=== PATIENT | female | born 1975 | race Caucasian/White ===

== ENCOUNTER 2016-12-09 16:06 | Emergency (ER) | payer SELFPAY ==
[~2016-12-09] VITALS: Ht 165.1 cm; Wt 90.9 kg
[2016-12-09 17:54] LABS: BASO % 0.4 % (0.0-1.0); EOS # 0.1 K/mm3 (0.0-0.50); EOS % 2.3 % (0.0-3.0); LARGE UNSTAINED CELL # 0.1 K/mm3 (0.0-0.4); LARGE UNSTAINED CELL % 2.3 % (0.0-4.0); LYMPH # 1.1 K/mm3 (1.5-4.5); LYMPH % 27.2 % (24.0-44.0); MEAN CORPUSCULAR HGB CONC 33.6 g/dl (32.0-36.5); MEAN CORPUSCULAR VOLUME 98.1 fl (80.0-96.0); MONO # 0.3 K/mm3 (0.0-0.8); MONO % 6.7 % (0.0-5.0); NEUTROPHILS # 2.6 K/mm3 (1.8-7.7); NEUTROPHILS % 61.1 % (36.0-66.0); PLATELET COUNT, AUTOMATED 233 k/mm3 (150-450); RED CELL DISTRIBUTION WIDTH 12.6 % (11.5-14.5); WHITE BLOOD COUNT 4.2 K/mm3 (4.0-10.0)
[2016-12-09 18:18] LABS: CONTROL LINE HCG INT CTR LINE PRESENT
[2016-12-09 18:26] LABS: ALBUMIN 3.5 GM/DL (3.2-5.2); ALBUMIN/GLOBULIN RATIO 0.97 (1.00-1.93); ALKALINE PHOSPHATASE 46 U/L (45-117); ALT/SGPT 43 U/L (12-78); ANION GAP 7 MEQ/L (8-16); AST/SGOT 28 U/L (15-37); BILIRUBIN,DIRECT < 0.1 MG/DL (0.0-0.2); BILIRUBIN,TOTAL 0.4 MG/DL (0.2-1.0); BLOOD UREA NITROGEN 14 MG/DL (7-18); CARBON DIOXIDE LEVEL 27 MEQ/L (21-32); CHLORIDE LEVEL 108 MEQ/L (98-107); CREATININE FOR GFR 0.63 MG/DL (0.55-1.02); GLOMERULAR FILTRATION RATE > 60.0 (>60); GLUCOSE, FASTING 102 MG/DL (70-105); POTASSIUM SERUM 4.2 MEQ/L (3.5-5.1); SODIUM LEVEL 142 MEQ/L (136-145); TOTAL PROTEIN 7.1 GM/DL (6.4-8.2)
[2016-12-09] MEDS ORDERED: ONDANSETRON 4MG/2ML VIAL (J2405) IV ONE (18:30)
[2016-12-09] MEDS ORDERED: KETOROLAC 30 MG/ML VIAL (J1885) IV ONE (18:30)
--- NOTE | 2016-12-09 18:59 | REP ---
Clinical: Renal colic. Findings: Liver, spleen, pancreas, collapsed gallbladder, bilateral adrenal glands and kidneys are normal for noncontrast evaluation. No perinephric stranding, hydroureternephrosis, intrarenal or obstructing ureteral calculi are identified. The enteric system is without obstruction or acute inflammatory process. Pelvis demonstrates normal bladder and age-appropriate uterus/adnexa. No pelvic fluid or ascites. No free air. No obvious adenopathy. Abdominal aorta without aneurysm. Surrounding musculoskeletal structures are intact. Impression: Normal noncontrast CT of the abdomen and pelvis. Normal appearance to the urinary tract system. No free fluid, free air, adenopathy. Signed by Magen Andino MD 12/09/2016 06:50 P
[2016-12-09] MEDS ORDERED: PERCOCET 5MG/325MG TAB PO ONE (19:30)
[2016-12-09] MEDS ORDERED: cefTRIAXone SOD 250 MG VIAL (J0696) IV ONE (20:00)
[2016-12-09] MEDS ORDERED: AZITHROMYCIN 250 MG TAB PO ONE (20:00)
[2016-12-09] MEDS ORDERED: LIDOCAINE 1% MDV 20ML VIAL As Ordered ONE (20:03)
[2016-12-09] MEDS ORDERED: PERCOCET PO (20:21)
[2016-12-09] MEDS ORDERED: KEFL500C17 PO (20:21)
[2016-12-09] MEDS ORDERED: OXYCODONE/APAP 5MG/325MG(BULK FOR ED) 1 TABLET PO ONE (20:30)
[2016-12-09 20:42] VITALS: BP 115/64
== END 2016-12-09 20:43 | disposition home or self-care (01) ==
LOC: M ED 16:06
DX: N73.0 Acute parametritis and pelvic cellulitis (principal); Z72.0 Tobacco use
CPT/HCPCS: 74176; 80048; 80076; 81001; 84703; 85025; 87086; 87210; 87491; 87591; 96374; 96375; 99283; J0696; J1885; J2405

== ENCOUNTER → 2017-04-29 | Outpatient (REF) | payer MEDICAID ==
[2017-04-29 17:10] LABS: INFLUENZA A AMPLIFICATION NEGATIVE (NEGATIVE); INFLUENZA B AMPLIFICATION POSITIVE (NEGATIVE); RSV AMPLIFICATION NEGATIVE (NEGATIVE)
== END ==
LOC: M LAB REF 16:25
DX: J11.1 Influenza due to unidentified influenza virus with other respiratory manifestations (principal)

== ENCOUNTER 2017-05-12 16:21 | Emergency (ER) | payer MEDICAID ==
[2017-05-12] MEDS: KETOROLAC TROMETHAMINE 10 MG TAB PO (19:44)
== END 2017-05-13 02:57 | disposition home or self-care (01) ==
LOC: M ED 05-13 02:57
DX: S83.412A Sprain of medial collateral ligament of left knee, initial encounter (principal); W01.0XXA Fall on same level from slipping, tripping and stumbling without subsequent striking against object, initial encounter; Y92.018 Other place in single-family (private) house as the place of occurrence of the external cause; J45.909 Unspecified asthma, uncomplicated; Z88.0 Allergy status to penicillin; Z88.1 Allergy status to other antibiotic agents
CPT/HCPCS: 73564

== ENCOUNTER → 2017-07-11 | Outpatient (REF) | payer OTHER ==
[2017-07-15 14:13] LABS: HPV HYBRID CAPTURE II Positive (Negative)
== END ==
LOC: M SFHCWAGY 10:35
DX: Z12.4 Encounter for screening for malignant neoplasm of cervix (principal)
CPT/HCPCS: 88142

== ENCOUNTER → 2017-08-18 | Outpatient (REF) | payer OTHER | LOC: M SFHCWAGY 13:50 | DX: R87.613 High grade squamous intraepithelial lesion on cytologic smear of cervix (HGSIL) (principal); R87.810 Cervical high risk human papillomavirus (HPV) DNA test positive; R87.610 Atypical squamous cells of undetermined significance on cytologic smear of cervix (ASC-US) | CPT/HCPCS: 88304 ==

== ENCOUNTER → 2017-12-26 | Outpatient (REF) | payer OTHER ==
[2017-12-26 22:10] LABS: APPEARANCE, URINE HAZY (CLEAR); BACTERIA, URINE AUTO 1+ (NEGATIVE); BILIRUBIN, URINE AUTO NEGATIVE (NEGATIVE); BLOOD, URINE BLOOD 1+ (NEGATIVE); COLOR, URINE YELLOW (YELLOW); GLUCOSE, URINE (UA) AUTO NEGATIVE (NEGATIVE); KETONE, URINE AUTO NEGATIVE (NEGATIVE); LEUKOCYTE ESTERASE, URINE AUTO TRACE (NEGATIVE); MUCUS, URINE SMALL (NEGATIVE); NITRITE, URINE AUTO NEGATIVE (NEGATIVE); PROTEIN, URINE AUTO NEGATIVE (NEGATIVE); RBC, URINE AUTO 1 /HPF (0-3); SPECIFIC GRAVITY URINE AUTO 1.024 (1.002-1.035); SQUAMOUS EPITHELIAL CELL UR AU 18 /HPF (0-6); UROBILINOGEN, URINE AUTO 0.2 mg/dL (0.0-2.0); WBC, URINE AUTO 3 /HPF (0-3)
== END ==
LOC: M LAB REF 21:13
DX: N39.0 Urinary tract infection, site not specified (principal)

== ENCOUNTER → 2018-03-25 | Outpatient (CLI) | payer OTHER ==
[~2018-03-25] MED LIST: ADV250INH INH; ALBU83IN INH; AZIT-12 PO; DEXT30LI PO; FLON1SPR; IBUP-1114 PO; KEFL500C17 PO; KETO10TAB PO; MUCI600T37 PO; PANT40TA3 PO; PERC5TAB12 PO; PERCOCET PO; PRED10TA2 PO; PRED20TA PO; ZYRT10CA PO; [UNRECOGNIZED DRUG - CODE] XX
[2018-03-25 17:45] LABS: BASO % 0.4 % (0.0-1.0); EOS # 0.1 10^3/uL (0.0-0.50); EOS % 1.4 % (0.0-3.0); HEMATOCRIT 43.1 % (36.0-47.0); HEMOGLOBIN 14.5 g/dl (12.0-15.5); LYMPH % 18.4 % (24.0-44.0); MEAN CORPUSCULAR HEMOGLOBIN 33.4 pg (27.0-33.0); MEAN CORPUSCULAR HGB CONC 33.6 g/dl (32.0-36.5); MEAN CORPUSCULAR VOLUME 99.3 fl (80.0-96.0); MONO # 0.6 10^3/uL (0.0-0.8); MONO % 9.8 % (0.0-5.0); NEUTROPHILS # 3.9 10^3/uL (1.8-7.7); NEUTROPHILS % 69.8 % (36.0-66.0); PLATELET COUNT, AUTOMATED 234 10^3/uL (150-450); RED BLOOD COUNT 4.34 10^6/uL (4.00-5.40); WHITE BLOOD COUNT 5.6 10^3/uL (4.0-10.0)
[2018-03-25 18:47] LABS: ERYTHROCYTE SEDIMENTATION RATE 5 mm/hr (0-20)
[2018-03-31 00:32] LABS: IgA ULTRASENSITIVE 340.7 mg/dL (72-321); TISSUE TRANSGLUTAMINASE IgA <2 U/mL (0-3); TISSUE TRANSGLUTAMINASE IgG <2 U/mL (0-5)
== END ==
LOC: M LAB 16:39
PROVIDERS: ATTEND Obstetrics & Gynecology
DX: K52.9 Noninfective gastroenteritis and colitis, unspecified (principal)

== ENCOUNTER 2018-05-06 08:59 | Day surgery (SDC) | payer OTHER ==
[~2018-05-06] VITALS: Ht 167.6 cm; Wt 96.2 kg
[~2018-05-06 08:59] MED LIST changes: +CLAR10CA3 PO; +NS 1,000 ML IV ONE; +OMEP20CA3 PO; +VENTAER INH
[2018-05-06] MEDS ORDERED: PROPOFOL 200 MG/20 ML VIAL As Ordered ONE (10:26)
--- NOTE | 2018-05-06 10:27 | ROOR ---
Patient Name: Julia Taylor Procedure Date: 05/06/2018 10:09 AM Date of : 1975 Age: 42 Room: [facility] Gender: Female Note Status: Finalized Procedure: Colonoscopy Indications: Rectal pain Providers: DO Jaja Drummond MD: dulce [facility] Provider: Medicines: Propofol per Anesthesia Complications: No immediate complications. Procedure: Pre-Anesthesia Assessment: - Prior to the procedure, a History and Physical was performed, and patient medications and allergies were reviewed. The patient is competent. The risks and benefits of the procedure and the sedation options and risks were discussed with the patient. All questions were answered and informed consent was obtained. Patient identification and proposed procedure were verified by the physician, the nurse, the anesthesiologist and the health care sanitary technician in the endoscopy suite. Mental Status Examination: alert and oriented. Airway Examination: normal oropharyngeal airway and neck mobility. Respiratory Examination: clear to auscultation. CV Examination: normal. Prophylactic Antibiotics: The patient does not require prophylactic antibiotics. Prior Anticoagulants: The patient has taken no previous anticoagulant or antiplatelet agents. ASA Grade Assessment: II - A patient with mild systemic disease. After reviewing the risks and benefits, the patient was deemed in satisfactory condition to undergo the procedure. The anesthesia plan was to use monitored anesthesia care (MAC). Immediately prior to administration of medications, the patient was re-assessed for adequacy to receive sedatives. The heart rate, respiratory rate, oxygen saturations, blood pressure, adequacy of pulmonary ventilation, and response to care were monitored throughout the procedure. The physical status of the patient was re-assessed after the procedure. The Colonoscope was introduced through the anus and advanced to the cecum, identified by appendiceal orifice and ileocecal valve. The colonoscopy was performed without difficulty. The patient tolerated the procedure well. Findings: An anal fissure was found on perianal exam. The perianal exam findings include non-thrombosed internal hemorrhoids and internal hemorrhoids (Grade I). The exam was otherwise without abnormality on direct and retroflexion views. Impression: - Anal fissure found on perianal exam. - Non-thrombosed internal hemorrhoids and internal hemorrhoids (Grade I) found on perianal exam. - The examination was otherwise normal on direct and retroflexion views. - No specimens collected. Recommendation: - Patient has a contact number available for emergencies. The signs and symptoms of potential delayed complications were discussed with the patient. Return to normal activities tomorrow. Written discharge instructions were provided to the patient. - Repeat colonoscopy in 10 years for screening purposes. - Return to my office PRN. Thanh Tarango DO 05/06/2018 10:27:12 AM This report has been signed electronically. Number of Addenda: 0 Note Initiated On: 05/06/2018 10:09 AM Estimated Blood Loss: Estimated blood loss: none.
[2018-05-06 10:50] VITALS: BP 112/83
== END 2018-05-06 11:19 | disposition home or self-care (01) ==
LOC: M OPP 08:59
PROVIDERS: ATTEND Surgery
DX: K62.89 Other specified diseases of anus and rectum (principal); K60.2 Anal fissure, unspecified; K64.0 First degree hemorrhoids; F17.210 Nicotine dependence, cigarettes, uncomplicated; Z88.0 Allergy status to penicillin; Z88.1 Allergy status to other antibiotic agents; Z79.1 Long term (current) use of non-steroidal anti-inflammatories (NSAID); Z79.899 Other long term (current) drug therapy

== ENCOUNTER → 2018-06-23 | Outpatient (CLI) | payer OTHER ==
[~2018-06-23] MED LIST changes: -NS 1,000 ML IV ONE
--- NOTE | 2018-06-29 15:59 | REP ---
BILATERAL MAMMOGRAM WITH 3D TOMOSYNTHESIS, DIAGNOSTIC MAMMOGRAM RIGHT BREAST, AND RIGHT BREAST ULTRASOUND: Bilateral mammography performed in the MLO and CC projections with 3D tomosynthesis. Patient complains of palpable tender lump at 10 o'clock for 1 month. The area is marked on the skin with a triangular marker and additional spot compression views are performed of that area. There is a family history of breast cancer in mother at age 58. [facility] lifetime risk of breast cancer 19.9%. Comparison made with prior mammogram from [place], [place] 01/12/2013. Mild scattered fibroglandular tissue is essentially unchanged. There is an intramammary lymph node subcentimeter in size in the upper outer quadrant of the right breast in the region of the palpable abnormality. In addition there are normal appearing bilateral axillary lymph nodes, which for the most part demonstrate fatty josi and are not enlarged. No suspicious mass is seen bilaterally. No clustered microcalcifications are seen. Real-time sonographic evaluation of the upper outer quadrant right breast performed in the region of the palpable lump. At that location there are three lymph nodes identified, largest measures 2.2 x 1.0 x 2.3 cm, another 10.0 x 8.0 x 9.0 mm and another 10.0 x 6.0 x 8.0 mm. IMPRESSION: BIRADS 2: BI-RADS/ACR category 2 mammogram. Benign Findings. No suspicious mass or clustered microcalcifications mammographically. Both mammographically and sonographically there are nonenlarged lymph nodes in the region of the palpable lump upper outer quadrant right breast. Clinical correlation and followup recommended. Recommend followup mammogram in 1 year. This mammogram was interpreted with the aid of an FDA-approved computer-aided detection system. The patient states she/he had a clinical breast exam in 05/2018. The patient letter being requested is M2. Electronically Signed by Thanh Keys MD 06/29/2018 04:36 P
== END ==
LOC: M RAD 09:38
DX: R59.0 Localized enlarged lymph nodes (principal)
CPT/HCPCS: 76642; 77066; G0279

== ENCOUNTER → 2018-07-01 | Outpatient (REF) | payer OTHER | LOC: M SFHCPLAZ 10:14 | PROVIDERS: ATTEND Dermatology | DX: C44.02 Squamous cell carcinoma of skin of lip (principal); D22.39 Melanocytic nevi of other parts of face; D23.39 Other benign neoplasm of skin of other parts of face ==

== ENCOUNTER → 2018-07-06 | Outpatient (CLI) | payer OTHER ==
--- NOTE | 2018-07-07 11:05 | REP ---
Clinical: Dating and viability. Technique: Transabdominal and transvaginal first trimester obstetrical ultrasound with color Doppler evaluation. Findings: Heterogeneous anteverted uterus measures 9.0 x 5.0 x 5.0 cm. Gestational sac with yolk sac identified. No pole noted. Mean sac diameter of 7 mm corresponds to 5 weeks 2 days gestational age. Right maternal ovary is normal in appearance and measures 2.3 x 1.9 x 1.6 cm with 1.4 cm dominant follicle/corpus luteum. Left ovary not visualized. Impression: 1. Likely early intrauterine . Correlation with serial HCG levels and repeat ultrasound may be warranted. Differential diagnosis less likely including blighted ovum/spontaneous and pseudogestational sac related to ectopic . Electronically Signed by Magen Andino MD 07/07/2018 10:57 A
== END ==
LOC: M RAD 12:09
PROVIDERS: ATTEND Nurse Practitioner Family
DX: Z32.01 Encounter for pregnancy test, result positive (principal); Z3A.01 Less than 8 weeks gestation of pregnancy

== ENCOUNTER → 2018-10-29 | Outpatient (REF) | payer OTHER ==
[~2018-10-29] MED LIST changes: -OMEP20CA3 PO; +OMEP20CA4 PO
== END ==
LOC: M SFHCWAGY 12:07
PROVIDERS: ATTEND Nurse Practitioner Women's Health
DX: B00.9 Herpesviral infection, unspecified (principal)

== ENCOUNTER → 2018-10-29 | Outpatient (REF) | payer OTHER ==
[2018-10-31 14:07] LABS: HPV HYBRID CAPTURE II Positive (Negative)
== END ==
LOC: M SFHCWAGY 10:21
PROVIDERS: ATTEND Nurse Practitioner Women's Health
DX: B00.9 Herpesviral infection, unspecified (principal)

== ENCOUNTER → 2019-03-09 | Outpatient (CLI) | payer OTHER ==
[~2019-03-09] MED LIST changes: +OMEP-172 PO; -OMEP20CA4 PO
--- NOTE | 2019-03-09 11:23 | REP ---
Chest x-ray: Two views. History: Shortness of breath and cough . Comparison study: July 04, 2017 . Findings: The lungs are well inflated and free of infiltrate. The pleural angles are sharp. The heart size is normal. Pulmonary vasculature is not increased. No significant bony abnormality is seen. Impression: Negative chest x-ray. Electronically Signed by Endy Garcias MD 03/09/2019 11:14 A
== END ==
LOC: M RAD 10:47
PROVIDERS: ATTEND Physician Assistant Medical
DX: R06.02 Shortness of breath (principal); R05 Cough

== ENCOUNTER → 2019-04-02 | Outpatient (CLI) | payer OTHER ==
[2019-04-02 17:26] LABS: HEMATOCRIT 44.5 % (36.0-47.0); HEMOGLOBIN 14.7 g/dl (12.0-15.5); MEAN CORPUSCULAR HEMOGLOBIN 32.4 pg (27.0-33.0); PLATELET COUNT, AUTOMATED 216 10^3/uL (150-450); RED BLOOD COUNT 4.54 10^6/uL (4.00-5.40); WHITE BLOOD COUNT 4.6 10^3/uL (4.0-10.0)
[2019-04-02 17:35] LABS: FREE T4 0.73 NG/DL (0.76-1.46); THYROID STIMULATING HORMONE 2.4 uIU/ML (0.358-3.740)
[2019-04-02 17:38] LABS: TOTAL 25(OH) VITAMIN D 14.9 NG/ML (30.0-100.0)
[2019-04-07 00:07] LABS: HSV-1 DNA Negative (Negative); HSV-2 DNA Negative (Negative)
== END ==
LOC: M PLALAB 13:16
PROVIDERS: ATTEND Student in an Organized Health Care Education/Training Program
DX: R53.83 Other fatigue (principal); B00.9 Herpesviral infection, unspecified

== ENCOUNTER → 2019-07-16 | Outpatient (REF) | payer OTHER ==
[~2019-07-16] MED LIST changes: -OMEP-172 PO; +OMEP1CAP73 PO
== END ==
LOC: M SFHCPLAZ 12:49
PROVIDERS: ATTEND Obstetrics & Gynecology
DX: E55.9 Vitamin D deficiency, unspecified (principal); F34.1 Dysthymic disorder

== ENCOUNTER → 2019-07-21 | Outpatient (CLI) | payer OTHER ==
[2019-07-21 15:44] LABS: FREE T4 0.92 NG/DL (0.76-1.46); THYROID STIMULATING HORMONE 3.01 uIU/ML (0.358-3.740)
== END ==
LOC: M PLALAB 13:40
PROVIDERS: ATTEND Obstetrics & Gynecology
DX: E55.9 Vitamin D deficiency, unspecified (principal); F34.1 Dysthymic disorder

== ENCOUNTER → 2019-12-11 | Outpatient (CLI) | payer OTHER ==
[~2019-12-11] MED LIST changes: +PANT40TA29 PO; -PANT40TA3 PO
--- NOTE | 2019-12-11 12:58 | REPVR ---
PROCEDURE INFORMATION: Exam: XR Chest, 2 Views Exam date and time: 12/11/2019 12:19 PM Age: 44 years old Clinical indication: Cough; Additional info: Cough/chest pain TECHNIQUE: Imaging protocol: XR of the chest Views: 2 views. COMPARISON: CR Chest, 2 view PA, Lat 07/04/2017 10:19 AM FINDINGS: Lungs: Hyperinflation and mild interstitial prominence, without infiltrate. Pleural space: No pleural effusion. Heart/Mediastinum: No cardiomegaly. Bones/joints: Unremarkable. When correlating with the previous study, no significant interval changes are present. IMPRESSION: No acute airspace or pleural disease. Electronically signed by: Graham Pulliam On 12/11/2019 12:58:07 PM
== END ==
LOC: M RAD 12:02
PROVIDERS: ATTEND Physician Assistant
DX: R05 Cough (principal); R07.9 Chest pain, unspecified

== ENCOUNTER → 2019-12-17 | Outpatient (REF) | payer OTHER | LOC: M SFHCWAGY 13:49 | PROVIDERS: ATTEND Nurse Practitioner Women's Health | DX: Z12.4 Encounter for screening for malignant neoplasm of cervix (principal); R87.612 Low grade squamous intraepithelial lesion on cytologic smear of cervix (LGSIL) ==

== ENCOUNTER 2020-01-03 16:49 | Emergency (ER) | payer OTHER ==
[~2020-01-03] VITALS: Ht 167.6 cm; Wt 102.4 kg
[2020-01-03] MEDS ORDERED: KEFL500C17 PO (19:51)
[2020-01-03 20:04] VITALS: BP 118/63
== END 2020-01-03 20:05 | disposition home or self-care (01) ==
LOC: M ED 16:49
DX: L03.012 Cellulitis of left finger (principal); Z79.51 Long term (current) use of inhaled steroids; Z79.899 Other long term (current) drug therapy; Z88.0 Allergy status to penicillin; Z88.1 Allergy status to other antibiotic agents

== ENCOUNTER → 2020-06-28 | Outpatient (REF) | payer OTHER ==
[2020-06-28 14:52] LABS: BLOOD UREA NITROGEN 13 MG/DL (7-18); CARBON DIOXIDE LEVEL 29 MEQ/L (21-32); CHLORIDE LEVEL 106 MEQ/L (98-107); CHOLESTEROL LEVEL 187 MG/DL (<200); CHOLESTEROL RISK RATIO 4.065 (<5); CREATININE FOR GFR 0.75 MG/DL (0.55-1.30); GLOMERULAR FILTRATION RATE > 60.0 (>58); GLUCOSE, FASTING 90 MG/DL (70-100); HDL CHOLESTEROL 46 MG/DL (>40); LDL CHOLESTEROL 120 MG/DL (<100); NON-HDL-C 141 MG/DL; SODIUM LEVEL 139 MEQ/L (136-145); TRIGLYCERIDES LEVEL 107 MG/DL (<150)
[2020-06-28 16:26] LABS: TOTAL 25(OH) VITAMIN D 22.7 NG/ML (30.0-100.0)
== END ==
LOC: M SFHCPLAZ 10:20
PROVIDERS: ATTEND Family Medicine
DX: Z13.1 Encounter for screening for diabetes mellitus (principal); Z13.220 Encounter for screening for lipoid disorders; E55.9 Vitamin D deficiency, unspecified

== ENCOUNTER → 2020-11-02 | Outpatient (CLI) | payer OTHER ==
--- NOTE | 2020-11-02 15:51 | REPMRS ---
Patient History The patient states she had a clinical breast exam in 2019. Family history of breast cancer at age 58 in mother. Tomosynthesis is performed. Volpara breast density is a. [facility] lifetime risk of breast cancer 19.6%. Left breast tenderness, the top half of the breast since June Patient signed the MRS sheet 1st covid vaccine 06/15/20-left arm-Moderna 2nd covid vaccine 07/13/20-left arm Priors on PACS Patient Identification Verified Patient denied Diagnostic Bilateral Mammo: November 02, 2020 - Exam #: [id number] Bilateral CC and MLO view(s) were taken. Technologist: Miesha Arriaga, Technologist Prior study comparison: June 23, 2018, digital mammo diagnostic bilateral, performed at [facility]. FINDINGS: There are scattered fibroglandular densities. There has been no change in the appearance of the mammogram from the prior studies. There is a mild amount of residual fibroglandular tissue which is fairly symmetric. There is no interval development of dominant mass, architectural distortion, or clustered microcalcification suggestive of malignancy. Assessment: BI-RADS/ACR category 1 mammogram. Negative Mammogram. Recommendation Routine screening mammogram in 1 year (for women over age 40). This mammogram was interpreted with the aid of an FDA-approved computer-aided dectection system. Electronically Signed By: Thanh Keys MD 11/02/20 [id number]
== END ==
LOC: M WHC 14:32
PROVIDERS: ATTEND Student in an Organized Health Care Education/Training Program
DX: N64.4 Mastodynia (principal); Z80.3 Family history of malignant neoplasm of breast
CPT/HCPCS: 77066; G0279

== ENCOUNTER 2020-12-08 14:16 | Emergency (ER) | payer MEDICAID, OTHER ==
[~2020-12-08] VITALS: Ht 167.6 cm; Wt 100.4 kg
[2020-12-08] MEDS ORDERED: VENL37.598 (14:34)
[2020-12-08] MEDS ORDERED: MI-A80CH (14:34)
[2020-12-08 18:35] LABS: BASO % 0.2 % (0.0-1.0); EOS # 0.1 10^3/uL (0.0-0.5); HEMATOCRIT 42.6 % (36.0-47.0); HEMOGLOBIN 14.4 g/dl (12.0-15.5); LYMPH # 1.3 10^3/uL (1.5-5.0); LYMPH % 25.5 % (24.0-44.0); MEAN CORPUSCULAR HEMOGLOBIN 33.2 pg (27.0-33.0); MEAN CORPUSCULAR HGB CONC 33.8 g/dl (32.0-36.5); MEAN CORPUSCULAR VOLUME 98.2 fl (80.0-96.0); MONO # 0.7 10^3/uL (0.0-0.8); MONO % 12.6 % (2.0-8.0); NEUTROPHILS # 3.2 10^3/uL (1.5-8.5); NEUTROPHILS % 60.3 % (36.0-66.0); PLATELET COUNT, AUTOMATED 226 10^3/uL (150-450); RED BLOOD COUNT 4.34 10^6/uL (4.00-5.40); WHITE BLOOD COUNT 5.3 10^3/uL (4.0-10.0)
[2020-12-08 18:52] LABS: HCG, SERUM QUALITATIVE NEGATIVE (NEGATIVE)
[2020-12-08 18:54] LABS: ALBUMIN 3.8 GM/DL (3.2-5.2); ALT/SGPT 48 U/L (12-78); BILIRUBIN,DIRECT 0.2 MG/DL (0.0-0.2); BILIRUBIN,TOTAL 0.6 MG/DL (0.2-1.0); BLOOD UREA NITROGEN 10 MG/DL (7-18); CALCIUM LEVEL 9.4 MG/DL (8.5-10.1); CARBON DIOXIDE LEVEL 27 MEQ/L (21-32); CHLORIDE LEVEL 106 MEQ/L (98-107); GLOMERULAR FILTRATION RATE > 60.0 (>58); GLUCOSE, FASTING 79 MG/DL (70-100); LIPASE 185 U/L (73-393); POTASSIUM SERUM 3.8 MEQ/L (3.5-5.1); SODIUM LEVEL 138 MEQ/L (136-145); TOTAL PROTEIN 7.5 GM/DL (6.4-8.2)
[2020-12-08 20:29] LABS: CK-MB VALUE MASS < 1.0 NG/ML (<3.6); CPK CREATINE PHOSPHOKINASE 45 U/L (26-192); MB/CK RELATIVE INDEX 2.22 (< OR =4); TROPONIN I < 0.02 NG/ML (< 0.10)
--- NOTE | 2020-12-08 21:13 | REPVR ---
PROCEDURE INFORMATION: Exam: US Abdomen, Limited; Right Upper Quadrant Exam date and time: 12/08/2020 8:39 PM Age: 45 years old Clinical indication: Abdominal pain; Acute; Additional info: Ruq pain, n/v/d TECHNIQUE: Imaging protocol: US abdomen. Real time ultrasound with image documentation. Limited exam focused on the right upper quadrant. COMPARISON: CT ABD PELVIS W/O CONTRAST 12/09/2016 6:32 PM FINDINGS: Liver: Mildly echogenic, consistent with fatty infiltration. Gallbladder: No gallstones. No gallbladder wall thickening or pericholecystic fluid. Negative sonographic Sotelo's sign, as per the performing intake clerk. Common bile duct: No stones. No ductal dilatation. Pancreas: Unremarkable as visualized. Right kidney: No mass. No definite stones. No hydronephrosis. IMPRESSION: Fatty liver. Electronically signed by: Kai Jeronimo On 12/08/2020 21:13:38 PM
[2020-12-08 21:28] VITALS: BP 128/94
--- NOTE | 2020-12-10 19:51 | ECGEPIP ---
[facility] - ED Test Date: 2020-12-08 Pat Name: DWAYNE CEJA Department: Room: - Gender: Female [employer] Install[employer]: [facility] : 1975 Requested By: BRIDGET Cristina PA-C Order Number: [id number] Reading MD: Jacinta Benjamin Measurements Intervals [place] Rate: 63 P: 18 AK: 200 QRS: -9 QRSD: 92 T: 22 QT: 418 QTc: 427 Interpretive Statements Normal sinus rhythm NSTTW abnormalities decreased rate 07/04/17 Electronically Signed on 12-10-2020 19:51:26 EDT by Jacinta Benjamin
== END 2020-12-08 21:43 | disposition home or self-care (01) ==
LOC: M ED 14:16
DX: R10.10 Upper abdominal pain, unspecified (principal); K76.0 Fatty (change of) liver, not elsewhere classified; J45.909 Unspecified asthma, uncomplicated; K21.9 Gastro-esophageal reflux disease without esophagitis; Z79.899 Other long term (current) drug therapy; Z88.0 Allergy status to penicillin; Z88.1 Allergy status to other antibiotic agents; F17.210 Nicotine dependence, cigarettes, uncomplicated

== ENCOUNTER → 2021-02-05 | Outpatient (REF) | payer OTHER ==
[~2021-02-05] MED LIST changes: +ALLE10TA62 PO; +MI-A80CH; +MUCI600T31 PO; +VENL37.598 PO
== END ==
LOC: M LAB REF 21:20
PROVIDERS: ATTEND Physician Assistant Medical
DX: R50.9 Fever, unspecified (principal); R06.02 Shortness of breath

== ENCOUNTER 2021-02-07 11:44 | Inpatient (IN) | payer OTHER ==
[~2021-02-07] VITALS: Ht 167.6 cm; Wt 105.2 kg
[~2021-02-07 11:44] MED LIST changes: -ALLE10TA62 PO; -MUCI600T31 PO
--- OUTSIDE RECORDS SUMMARY | 2021-02-07 11:51 | CCD ---
Author Author [facility] Organization [facility] Address Unknown Phone Unavailable Support Name Relationship Address [place] [address] [place] [address] GRICELDA MO(COUSIN) Next Of [facility] [address] [place] [address] [employer] [place] [address] GRICELDA MO Next Of [facility] [address] [place] [address] Mariah Amador DMD Next Of Kin [address] [place] [address] [facility] Next Of Kin [address] [place] [address] JANEY CEJA Next Of Kin [address] [address] UE Next Of Kin Unknown Unavailable Jie CEJA Next Of Kin [address] [place] [address] GRICELDA MO [address] [address] Unavailable Re-disclosure Warning The records that you are about to access may contain information from federally-assisted alcohol or drug abuse programs. If such information is present, then the following federally mandated warning applies: This information has been disclosed to you from records protected by federal confidentiality rules (42 CFR part 2). The federal rules prohibit you from making any further disclosure of this information unless further disclosure is expressly permitted by the written consent of the person to whom it pertains or as otherwise permitted by 42 CFR part 2. A general authorization for the release of medical or other information is NOT sufficient for this purpose. The Federal rules restrict any use of the information to criminally investigate or prosecute any alcohol or drug abuse patient.The records that you are about to access may contain highly sensitive health information, the redisclosure of which is protected by Article 27-F of the [facility] Public Health law. If you continue you may have access to information: Regarding HIV / AIDS; Provided by facilities licensed or operated by the [facility] Office of Mental Health; or Provided by the [facility] Office for People With Developmental Disabilities. If such information is present, then the following [facility] mandated warning applies: This information has been disclosed to you from confidential records which are protected by state law. State law prohibits you from making any further disclosure of this information without the specific written consent of the person to whom it pertains, or as otherwise permitted by law. Any unauthorized further disclosure in violation of state law may result in a fine or prison sentence or both. A general authorization for the release of medical or other information is NOT sufficient authorization for further disc losure. Family History Family Member Name Family Member Gender Family Member Status Date o f Status Description Data Source(s) Unknown Male Problem MEDENT ([facility]) Unknown Male Problem MEDENT ([facility] ) Encounters Encounter Providers Location Date Indications Data Source(s ) Unknown [address] [facility] [place] [address] 12/12/2020 12:00:00 AM EDT eCW1 ([facility]) Unknown [address] [facility] [place] [address] 12/11/2020 12:00:00 AM EDT eCW1 ([facility]) Unknown [address] [facility] [place] [address] 12/07/2020 12:00:00 AM EDT eCW1 ([facility]) Outpatient 11/18/2020 11:49:14 AM EDT DocuTap ([facility]) Unknown [address] [facility] [place] [address] 09/05/2020 12:00:00 AM EDT eCW1 ([facility]) Unknown [address] [facility] [place] [address] 07/12/2020 12:00:00 AM EDT eCW1 ([facility]) Unknown [address] [facility] [place] [address] 06/29/2020 12:00:00 AM EDT eCW1 ([facility]) Outpatient [address] [facility] [address] 06/28/2020 12:00:00 AM EDT eCW1 ([facility]) Unknown [address] [facility] [address] 06/07/2020 12:00:00 AM EST eCW1 ([facility]) Unknown [address] [facility] [address] 04/18/2020 12:00:00 AM EST eCW1 ([facility]) Unknown [address] [facility] [address] 04/12/2020 12:00:00 AM EST eCW1 ([facility]) Unknown [address] [facility] [address] 02/29/2020 12:00:00 AM EST eCW1 ([facility]) Outpatient [address] [facility] [address] 02/10/2020 12:00:00 AM EST eCW1 ([facility]) Outpatient [address] [facility] [address] 01/24/2020 12:00:00 AM EDT eCW1 ([facility]) Outpatient [address] [facility] [address] 01/20/2020 12:00:00 AM EDT eCW1 ([facility]) (WC PROC) [facility]Center Procedure [address] [place] [address] 01/17/2020 12:00:00 AM EDT eCW1 ([facility]) Unknown [address] [facility] [address] 01/03/2020 12:00:00 AM EDT eCW1 ([facility]) Unknown [address] [facility] [address] 12/31/2019 12:00:00 AM EDT eCW1 ([facility]) Outpatient [address] [facility] [address] 12/30/2019 12:00:00 AM EDT eCW1 ([facility]) Immunizations Vaccine Date Status Description Data Source(s) COVID-19 VACCINE Moderna 07/13/2020 12:00:00 AM EDT completed [place] Vaccine Series Complete: YESThis Data wa s Submitted to [facility] Via [employer]. COVID-19 VACCINE Moderna 06/15/2020 12:00:00 AM EDT completed [place] Vaccine Series Complete: NOThis Data was Submitted to [facility] Via [employer]. Medications Medication Brand Name Start Date Product Form Dose Route Admi nistrative Instructions Pharmacy Instructions Status Indications Reaction Description Data Source(s) Metronidazole 500 MG Oral Tablet METRONIDAZOLE 01/30/2021 12:0 0:00 AM EDT tablet 14 TAKE ONE TABLET BY MOUTH TWICE A DAY FOR 7 DAYS TAKE ONE TABLET BY MOUTH TWICE A DAY FOR 7 DAYS SOLD: 01/30/2021 [facility] 150 mg 01/30/2021 12:00:00 AM EDT tablet 2 TAKE ONE TABLET BY MOUTH TODAY REPEAT DOSE IN 7 DAYS TAKE ONE TABLET BY MOUTH TODAY REPEAT DOSE IN 7 DAYS S OLD: 01/30/2021 [facility] 150 mg 01/09/2021 12:00:00 AM EDT tablet 2 TAKE 1 TABLET BY MOUTH ONCE FOR 1 DAY TAKE 1 TABLET BY MOUTH ONCE FOR 1 DAY SOLD: 01/09/2021 [facility] 250 mg 01/09/2021 12:00:00 AM EDT tablet 6 TAKE TWO TABLETS BY MOUTH AT ONCE ON THE FIRST DAY THEN TAKE ONE DAILY THEREAFTER TAKE TWO TABLETS BY MOUTH AT ONCE ON THE FIRST DAY THEN TAKE ONE DAILY THEREAFTER SOLD: 01/09/2021 [facility] 80 mg 12/06/2020 12:00:00 AM EDT tablet,chewable 30 CHEW ONE TABLET BY MOUTH FOUR TIMES A DAY NEEDED CHEW ONE TABLET BY MOUTH FOUR TIMES A DAY NEEDED SOLD: 12/06/2020 [facility] 37.5 mg 11/10/2020 12:00:00 AM EDT capsule,extended releas e 24hr 30 TAKE ONE CAPSULE BY MOUTH EVERY DAY TAKE ONE CAPSULE BY MOUTH EVERY DAY SOLD: 12/18/2020 [facility] 37.5 mg 11/10/2020 12:00:00 AM EDT capsule,extended releas e 24hr 30 TAKE ONE CAPSULE BY MOUTH EVERY DAY TAKE ONE CAPSULE BY MOUTH EVERY DAY SOLD: 11/16/2020 [facility] 37.5 mg 11/10/2020 12:00:00 AM EDT capsule,extended releas e 24hr 30 TAKE ONE CAPSULE BY MOUTH EVERY DAY TAKE ONE CAPSULE BY MOUTH EVERY DAY SOLD: 01/14/2021 [facility] 300 mg 10/25/2020 12:00:00 AM EDT capsule 14 TAKE ONE CAPSULE BY MOUTH EVERY 12 HOURS FOR 7 DAYS TAKE ONE CAPSULE BY MOUTH EVERY 12 HOURS FOR 7 DAYS SO LD: 10/25/2020 [facility] 20 mg 09/11/2020 12:00:00 AM EDT tablet 7 TAKE ONE TABLET BY MOUTH EVERY DAY FOR 7 DAYS TAKE ONE TABLET BY MOUTH EVERY DAY FOR 7 DAYS SOLD: 09/11/2020 [facility] 90 mcg/actuation 09/11/2020 12:00:00 AM EDT HFA aerosol inha ler 8 INHALE TWO PUFFS BY MOUTH THREE TIMES A DAY FOR 10 DAYS INHALE TWO PUFFS BY MOUTH THREE TIMES A DAY FOR 10 DAYS SOLD: 09/11/2020 [facility] 2.5 mg /3 mL (0.083 %) 09/11/2020 12:00:00 AM EDT solu tion for nebulization 75 INHALE THE CONTENTS OF ONE VIAL VIA NEBU LIZER FOUR TIMES A DAY NEEDED INHALE THE CONTENTS OF ONE VIAL VIA NEBULIZER FOUR TIMES A DAY NEEDED SOLD: 09/11/2020 [facility] 250 mg 09/11/2020 12:00:00 AM EDT tablet 6 TAKE TWO TABLETS BY MOUTH AT ONCE ON THE FIRST DAY THEN TAKE ONE DAILY THEREAFTER TAKE TWO TABLETS BY MOUTH AT ONCE ON THE FIRST DAY THEN TAKE ONE DAILY THEREAFTER SOLD: 09/11/2020 [facility] 37.5 mg 07/15/2020 12:00:00 AM EDT capsule,extended releas e 24hr 30 TAKE ONE CAPSULE BY MOUTH EVERY DAY TAKE ONE CAPSULE BY MOUTH EVERY DAY SOLD: 09/18/2020 [facility] 37.5 mg 07/15/2020 12:00:00 AM EDT capsule,extended releas e 24hr 30 TAKE ONE CAPSULE BY MOUTH EVERY DAY TAKE ONE CAPSULE BY MOUTH EVERY DAY SOLD: 07/16/2020 [facility] 37.5 mg 07/15/2020 12:00:00 AM EDT capsule,extended releas e 24hr 30 TAKE ONE CAPSULE BY MOUTH EVERY DAY TAKE ONE CAPSULE BY MOUTH EVERY DAY SOLD: 08/14/2020 [facility] 37.5 mg 07/15/2020 12:00:00 AM EDT capsule,extended releas e 24hr 30 TAKE ONE CAPSULE BY MOUTH EVERY DAY TAKE ONE CAPSULE BY MOUTH EVERY DAY SOLD: 10/15/2020 [facility] 37.5 mg 06/09/2020 12:00:00 AM EST capsule,extended releas e 24hr 30 TAKE ONE CAPSULE BY MOUTH EVERY DAY TAKE ONE CAPSULE BY MOUTH EVERY DAY SOLD: 06/10/2020 [facility] 100 mg 01/31/2020 12:00:00 AM EST capsule 14 TAKE ONE CAPSULE BY MOUTH TWICE A DAY FOR 7 DAYS TAKE ONE CAPSULE BY MOUTH TWICE A DAY FOR 7 DAYS SOLD: 01/31/2020 [facility] 90 mcg/actuation 01/29/2020 12:00:00 AM EDT HFA aerosol inha ler 8 INHALE 1 PUFF BY MOUTH EVERY 4 HOURS NEEDED INHALE 1 PUFF BY MOUTH EVERY 4 HOURS NEEDED SOLD: 01/31/2020 [facility] Cephalexin 500 MG Oral Capsule CEPHALEXIN 12/31/2019 12:00:00 AM EDT capsule 21 TAKE ONE CAPSULE BY MOUTH THREE TIMES A DAY FOR 7 DAYS TAKE ONE CAPSULE BY MOUTH THREE TIMES A DAY FOR 7 DAYS SOLD: 12/31/2019 [facility] 100 mg 12/11/2019 12:00:00 AM EDT capsule 14 TAKE ONE CAPSULE BY MOUTH TWICE A DAY FOR 7 DAYS TAKE ONE CAPSULE BY MOUTH TWICE A DAY FOR 7 DAYS SOLD: 12/11/2019 [facility] 2.5 mg /3 mL (0.083 %) 12/11/2019 12:00:00 AM EDT solu tion for nebulization 75 INHALE THE CONTENTS OF ONE VIAL VIA NEBU LIZER FOUR TIMES A DAY NEEDED INHALE THE CONTENTS OF ONE VIAL VIA NEBULIZER FOUR TIMES A DAY NEEDED SOLD: 12/11/2019 [facility] Insurance Providers Payer name Policy type / Coverage type Policy ID Covered constitution party ID Covered constitution party's relationship to corado Policy [place] Plan Information [employer] COMM[employer]ITY [employer]AN MCDO [id number] SP [id number] [facility] Health Maintenance Organization (HMO) [id number] Self [id number] [facility] I [id number] Self [id number] [facility] Commercial Insurance Co. [id number] Self [id number] ANSI-Medicaid [id number] ANSI-Medicaid [id number] ANSI-Medicaid [id number] ANSI-Medicaid [id number] ANSI-Medicaid [id number] ANSI-Medicaid [id number] ANSI-Medicaid [id number] Medicaid S [id number] S [id number] Managed Care - Community Plan [facility] P [id number] S [id number] ANSI-Medicaid [id number] [facility]-Medicaid [id number] [facility]-Medicaid [id number] [facility](MCAID) O [id number] S [id number] [facility] [id number] SP [id number] MEDICAID M [id number] S [id number] [facility] [id number] SP [id number] MEDICAID [id number] SP [id number] Medicaid S UNAVAILABLE S UNAVAILA BLE [facility] Community Plan Commercial [id number] Self [id number] O UNAVAILABLE UNAVAILA BLE SELF PAY ONLY [id number] SP [id number] [facility] [id number] SP [id number] SELF PAY UNAVAILABLE SP UNAVAILA BLE [facility] [id number] SP [id number] [facility](MCAID) O [id number] S [id number] [facility]-Medicaid [id number] Problems, Conditions, and Diagnoses Code Display Name Description Problem Type Effective Dates Data Source(s) R92.8 [id number] Abnormal findings on diagnostic imaging o f breast Problem 06/27/2020 12:00:00 AM EDT eCW1 ([facility]) M54.41 Sciatica Lumbago with sciatica, right side Problem 04/13/2020 12:00:00 AM EST eCW1 ([facility]) M54.42 Sciatica Lumbago with sciatica, left side Problem 04/13/2020 12:00:00 AM EST eCW1 ([facility]) G89.29 Chronic pain Other chronic pain Problem 04/13/2020 12:0 0:00 AM EST eCW1 ([facility]) F41.0 [id number] Panic attacks Problem 01/28/2020 12:00:00 AM EDT eCW1 ([facility]) R87.810 [id number] Papanicolaou smear o f cervix with positive high risk human papilloma virus (HPV) test Problem 01/17/2020 12:00:00 AM EDT eCW1 ( [facility]) Surgeries/Procedures No Information Results ID Date Data Source [id number] 12/20/2020 12:00:00 AM EDT [facility] Name Value Range Interpretation Code Description Data Yomaira rce(s) Supporting Document(s) SARS-CoV2 Rapid Antigen Negative [facility] This lab was ordered by [facility] and reported by [facility]. ID Date Data Source [id number] 11/19/2020 12:00:00 AM EDT [facility] Name Value Range Interpretation Code Description Data Yomaira rce(s) Supporting Document(s) SARS-CoV2 Rapid Antigen Negative [facility] This lab was ordered by [facility] and reported by [facility] ID Date Data Source [id number] 06/22/2020 12:00:00 AM EDT [place] Name Value Range Interpretation Code Description Data Yomaira rce(s) Supporting Document(s) SARS coronavirus 2 Ag Covid_negative [facility] This lab was ordered by ALESSIO enriquez nd reported by [facility]. ID Date Data Source Test, Urine 01/17/2020 01:09:43 PM EDT eCW1 ([facility]) Name Value Range Interpretation Code Description Data Yomaira rce(s) Supporting Document(s) Choriogonadotropin.beta subunit ( test) [Presence] in U rine negative Test, Urine eCW1 ([facility]) yes Internal QC Acceptable (Y/N) e CW1 ([facility]) Procedure Social History Code Duration Value Status Description Data Source(s ) Smoking 12/12/2020 12:00:00 AM EDT Former Smoker completed Former Smoker eCW1 ([facility]) Smoking 12/12/2020 12:00:00 AM EDT Former Smoker completed Former Smoker eCW1 ([facility]) Smoking 06/28/2020 12:00:00 AM EDT Former Smoker completed Former Smoker eCW1 ([facility]) Smoking 06/28/2020 12:00:00 AM EDT Former Smoker completed Former Smoker eCW1 ([facility]) Smoking 06/28/2020 12:00:00 AM EDT Former Smoker completed Former Smoker eCW1 ([facility]) Smoking 06/28/2020 12:00:00 AM EDT Former Smoker completed Former Smoker eCW1 ([facility]) Smoking 06/28/2020 12:00:00 AM EDT Former Smoker completed Former Smoker eCW1 ([facility]) Smoking 06/06/2020 12:00:00 AM EST Former Smoker completed Former Smoker eCW1 ([facility]) Smoking 02/10/2020 12:00:00 AM EST Former Smoker completed Former Smoker eCW1 ([facility]) Smoking 02/10/2020 12:00:00 AM EST Former Smoker completed Former Smoker eCW1 ([facility]) Smoking 02/10/2020 12:00:00 AM EST Former Smoker completed Former Smoker eCW1 ([facility]) Smoking 02/10/2020 12:00:00 AM EST Former Smoker completed Former Smoker eCW1 ([facility]) Smoking 02/10/2020 12:00:00 AM EST Former Smoker completed Former Smoker eCW1 ([facility]) Smoking 02/10/2020 12:00:00 AM EST Former Smoker completed Former Smoker eCW1 ([facility]) Smoking 01/24/2020 12:00:00 AM EDT Former Smoker completed Former Smoker eCW1 ([facility]) Smoking 01/20/2020 12:00:00 AM EDT Former Smoker completed Former Smoker eCW1 ([facility]) Smoking 12/30/2019 12:00:00 AM EDT Current Smoker completed Curre nt Smoker eCW1 ([facility]) Smoking 12/30/2019 12:00:00 AM EDT Current Smoker completed Curre nt Smoker eCW1 ([facility]) Vital Signs ID Date Data Source UNK Name Value Range Interpretation Code Description Data Source(s) Body weight 227 [lb_av] 227 [lb_av] eCW1 ([facility]) Body height [in_i] eCW1 ([facility]) Body mass index (BMI) [Ratio] 36.63 kg/m2 36.63 kg/m2 eCW1 ([facility]) Heart rate 101 /min 101 /min eCW1 ([facility]) Respiratory rate 18 /min 18 /min eCW1 ([facility]) Body temperature 98.9 [degF] 98.9 [degF] eCW1 ( [facility]) Systolic blood pressure 110 mm[Hg] 110 mm[Hg] e CW1 ([facility]) Diastolic blood pressure 72 mm[Hg] 72 mm[Hg] eCW1 ([facility]) Body height 66 [in_i] 66 [in_i] [facility] ([facility], ) 5'6" Body weight 200.00 [lb_av] 200.00 [lb_av] MEDEN T ([facility], ) Body mass index (BMI) [Ratio] 32.3 kg/m2 32.3 k g/m2 [facility] ([facility]) [place] body weight 130 [lb_av] 130 [lb_av] MEDEN T ([facility]) Body weight 90.720 kg 90.720 kg [facility] ([facility], ) Body weight 232.0 [lb_av] 232.0 [lb_av] eCW1 ([facility]) Body temperature 97.3 [degF] 97.3 [degF] eCW1 ( [facility]) Respiratory rate 18 /min 18 /min eCW1 ([facility]) Systolic blood pressure 116 mm[Hg] 116 mm[Hg] e CW1 ([facility]) Diastolic blood pressure 64 mm[Hg] 64 mm[Hg] eCW1 ([facility]) Body height [in_i] eCW1 ([facility]) Body mass index (BMI) [Ratio] 37.44 kg/m2 37.44 kg/m2 eCW1 ([facility]) Heart rate 86 /min 86 /min eCW1 ([facility]) Body weight 231 [lb_av] 231 [lb_av] eCW1 ([facility]) Body height [in_i] eCW1 ([facility]) Body mass index (BMI) [Ratio] 37.28 kg/m2 37.28 kg/m2 eCW1 ([facility]) Heart rate 97 /min 97 /min eCW1 ([facility]) Respiratory rate 18 /min 18 /min eCW1 ([facility]) Body temperature 97.1 [degF] 97.1 [degF] eCW1 ( [facility]) Systolic blood pressure 108 mm[Hg] 108 mm[Hg] e CW1 ([facility]) Diastolic blood pressure 64 mm[Hg] 64 mm[Hg] eCW1 ([facility]) Body weight 225 [lb_av] 225 [lb_av] eCW1 ([facility]) Body height [in_i] eCW1 ([facility]) Body mass index (BMI) [Ratio] 36.31 kg/m2 36.31 kg/m2 eCW1 ([facility]) Heart rate 94 /min 94 /min eCW1 ([facility]) Respiratory rate 18 /min 18 /min eCW1 ([facility]) Body temperature 97.5 [degF] 97.5 [degF] eCW1 ( [facility]) Systolic blood pressure 112 mm[Hg] 112 mm[Hg] e CW1 ([facility]) Diastolic blood pressure 64 mm[Hg] 64 mm[Hg] eCW1 ([facility]) Body weight 224 [lb_av] 224 [lb_av] eCW1 ([facility]) Body height [in_i] eCW1 ([facility]) Body mass index (BMI) [Ratio] 36.15 kg/m2 36.15 kg/m2 eCW1 ([facility]) Systolic blood pressure 114 mm[Hg] 114 mm[Hg] e CW1 ([facility]) Diastolic blood pressure 68 mm[Hg] 68 mm[Hg] eCW1 ([facility]) Body weight 221 [lb_av] 221 [lb_av] eCW1 ([facility]) Body height [in_i] eCW1 ([facility]) Body mass index (BMI) [Ratio] 35.67 kg/m2 35.67 kg/m2 eCW1 ([facility]) Heart rate 90 /min 90 /min eCW1 ([facility]) Respiratory rate 18 /min 18 /min eCW1 ([facility]) Body temperature 97.9 [degF] 97.9 [degF] eCW1 ( [facility]) Systolic blood pressure 112 mm[Hg] 112 mm[Hg] e CW1 ([facility]) Diastolic blood pressure 70 mm[Hg] 70 mm[Hg] eCW1 ([facility])
--- OUTSIDE RECORDS SUMMARY | 2021-02-07 11:51 | CCD ---
Author Author [facility] Organization [facility] Address Unknown Phone Unavailable Care Team Providers Care Chief I Dispatcher Name Role Phone Max Lutz Unavailable PROBLEMS Type Condition ICD9-CM Code [id number] Code Onset Dates Condition S tatus W/U Status Risk SNOMED Code Notes Problem Dysthymia F34.1 Active confirmed 49439920 Problem Frequent menstruation N92.0 Active confirmed 85845264 Problem Generalized anxiety disorder F41.1 Active confirme d 62107954 Problem Rosacea L71.9 Active confirmed 805026237 Problem Dermatofibroma of left upper arm D23.62 Active confirmed 160277316 Problem Moderate asthma with exacerbation, unspecified w hether persistent J45.901 Active confirmed 384724604 Problem Hx of abnormal cervical Pap smear Z87.898 Active confirmed 130179467 Problem Dermatofibroma of back D23.5 Active confirmed 70324416 Problem Vitamin D deficiency E55.9 Active confirmed 97120483 Problem Acute right-sided low back pain with left-sided sciatica M54.42 Active confirmed 801426480 Problem Mild persistent asthma, unspecified whether complicated J45.30 Active confirmed 134205207 Problem Other chronic pain G89.29 Active confirmed 8 1558834 Problem Moderate episode of recurrent major depressive disorder F33.1 Active confirmed 972282416 Problem Abnormal findings on diagnostic imaging of breast R92.8 Active confirmed 866134912 Problem Herpetic lesion B00.9 Active confirmed 2351 3009 Problem Papanicolaou smear of cervix with positive high risk human papilloma virus (HPV) test R87.810 Active confirmed 801086967 Problem Panic attacks F41.0 Active confirmed 969164 000 Problem Lumbago with sciatica, left side M54.42 Active conf irmed 18490166 Problem Lumbago with sciatica, right side M54.41 Active confirmed 96853756 ALLERGIES Allergen (clinical drug ingredient) Drug/Non Drug Allergy do cumented on EMR Reaction Allergy Type Onset Date Status ciprofloxacin Cipro([facility] Code:[address]-10) Hives Drug Allergy Active Penicillin (For Allergies Use Only) Hives Drug Allerg y Active Mold/dust/pollen/ragweed sneeze/wheezing/itchy eyes Non Dr ug Allergy Active Cat dander Cat dander sneeze/itchy eyes Non Drug Allergy A ctive Strawberries Hives Non Drug Allergy Active ENCOUNTERS from 1977 to 2020-12-14 Encounter Location Date Provider Diagnosis [place] [address] [facility] [phone] [place] [address] Nov, Max Lutz IMMUNIZATIONS Vaccine Route Administration Date Status MMR 0.5mL Unknown May 28, 2017 Administered SOCIAL HISTORY Tobacco Use: Social History Observation Description Date Details (start date - stop date) Former Smoker Sex Assigned At : Social History Observation Description Sex Assigned At Unknown Education: Question Answer Notes Level of Education: College Language: Question Answer Notes Languages spoken: Uruguayan Voodoo: Question Answer Notes Voodoo 33 None Sexual Hx: Question Answer Notes Had sex in the last 12 months (vaginal, oral, or anal)? Yes LMP: 06/15/17 Have you ever had an STD? Yes Prevention Strategies discussed: Condoms with Men only Use protection? Yes Other? Yes Herpes? No Syphilis? No GC? Yes Chlamydia? Yes How often? Most of the time Alcohol Screening: Question Answer Notes Did you have a drink containing alcohol in the past year? Ye s Points 4 Interpretation Positive How often did you have six or more drinks on one occas ion in the past year? Less than monthly (1 point) How many drinks did you have on a typica l day when you were drinking in the past year? 3 or 4 (1 point) How often did you have a drink containing alcohol in t he past year? Two to four times a month (2 points) BMI Care Goal Follow-Up Question Answer Notes Above Normal BMI Follow-Up Giving encouragement to exercise, Weight monitoring Tobacco Use: Question Answer Notes Are you a: former smoker REASON FOR REFERRAL No Information VITAL SIGNS No information MEDICATIONS Medication SIG (Take, Route, Frequency, Duration) Notes Start Da te End Date Status Xanax 0.25 MG 1 tablet Orally once, 30 minutes prior to proced ure for 1 days July, Not-Taking Drisdol 1.25 MG (70762 UT) 1 capsule Orally Mar, Not-Taking Albuterol Sulfate HFA 108 (90 Base) MCG/ACT 1 puff as needed Inhalation every 4 hrs for 30 Days July, Active Effexor 37.5 MG 1 tablet with food Orally Once a day for 30 day(s) Active PROCEDURES No Information RESULTS No Results REASON FOR VISIT still having symptoms MEDICAL (GENERAL) HISTORY Type Description Date Medical History asthma Medical History abscessed tooth removed 07/21/17 Medical History Major depressive disorder, s brittany episode, severe without psychotic features Medical History Adjustment disorder with mixed anxiety a nd depressed mood Medical History Asthma, unspecified asthma s everity, unspecified whether complicated, unspecified whether persistent Surgical History colposcopy with saul 05/06/17 Hospitalization History pneumonia, [facility] for 5 days 06/2017 Goals Section No Information Health Concerns No Information MEDICAL EQUIPMENT No Information MENTAL STATUS No Information FUNCTIONAL STATUS No Information ASSESSMENTS No Information PLAN OF TREATMENT Next Appt Details Provider Name:Max K Nelda, 2020-03 0-12 10:30:00 AM, [address] [facility] [address] , , [place], [address], Insurance Providers Payer Name Payer Address Payer Phone Insured Name Patient Relati onship to Insured Coverage Start Date Coverage End Date [facility] [address] [facility] [phone] DWAYNE CEJA self
--- OUTSIDE RECORDS SUMMARY | 2021-02-07 11:51 | CCD ---
Author Author [facility] Organization [facility] Address Unknown Phone Unavailable Care Team Providers Care Food Sanitarian Name Role Phone Elio Contreras Unavailable PROBLEMS Type Condition ICD9-CM Code [id number] Code Onset Dates Condition S tatus W/U Status Risk SNOMED Code Notes Problem Dysthymia F34.1 Active confirmed 26564248 Problem Frequent menstruation N92.0 Active confirmed 64190591 Problem Generalized anxiety disorder F41.1 Active confirme d 51020740 Problem Rosacea L71.9 Active confirmed 570233714 Problem Dermatofibroma of left upper arm D23.62 Active confirmed 229992611 Problem Moderate asthma with exacerbation, unspecified w hether persistent J45.901 Active confirmed 205978355 Problem Hx of abnormal cervical Pap smear Z87.898 Active confirmed 975801946 Problem Dermatofibroma of back D23.5 Active confirmed 03422452 Problem Vitamin D deficiency E55.9 Active confirmed 13057131 Problem Acute right-sided low back pain with left-sided sciatica M54.42 Active confirmed 597809397 Problem Mild persistent asthma, unspecified whether complicated J45.30 Active confirmed 828662988 Problem Other chronic pain G89.29 Active confirmed 8 4687672 Problem Moderate episode of recurrent major depressive disorder F33.1 Active confirmed 563024872 Problem Abnormal findings on diagnostic imaging of breast R92.8 Active confirmed 367218774 Problem Herpetic lesion B00.9 Active confirmed 2351 3009 Problem Papanicolaou smear of cervix with positive high risk human papilloma virus (HPV) test R87.810 Active confirmed 676745846 Problem Panic attacks F41.0 Active confirmed 415714 000 Problem Lumbago with sciatica, left side M54.42 Active conf irmed 96450924 Problem Lumbago with sciatica, right side M54.41 Active confirmed 95869383 ALLERGIES Allergen (clinical drug ingredient) Drug/Non Drug Allergy do cumented on EMR Reaction Allergy Type Onset Date Status ciprofloxacin Cipro([facility] Code:[address]-82) Hives Drug Allergy Active Penicillin (For Allergies Use Only) Hives Drug Allerg y Active Mold/dust/pollen/ragweed sneeze/wheezing/itchy eyes Non Dr ug Allergy Active Cat dander Cat dander sneeze/itchy eyes Non Drug Allergy A ctive Strawberries Hives Non Drug Allergy Active ENCOUNTERS from 1977 to 2020-12-13 Encounter Location Date Provider Diagnosis [facility] [place] [address] [facility] [address] [phone] [place] [address] Nov, Elio Contreras IMMUNIZATIONS Vaccine Route Administration Date Status MMR 0.5mL Unknown May 28, 2017 Administered SOCIAL HISTORY Tobacco Use: Social History Observation Description Date Details (start date - stop date) Former Smoker Sex Assigned At : Social History Observation Description Sex Assigned At Unknown Education: Question Answer Notes Level of Education: College Language: Question Answer Notes Languages spoken: Ivorian Alevism: Question Answer Notes Alevism 33 None Sexual Hx: Question Answer Notes [...] 1 days July, Not-Taking Drisdol 1.25 MG (09331 UT) 1 capsule Orally Mar, Not-Taking Albuterol Sulfate HFA 108 (90 Base) MCG/ACT 1 puff as needed Inhalation every 4 hrs for 30 Days July, Active Effexor 37.5 MG 1 tablet with food Orally Once a day for 30 day(s) Active PROCEDURES No Information RESULTS No Results REASON FOR VISIT no showed MEDICAL (GENERAL) HISTORY Type Description Date Medical [...] OF TREATMENT Next Appt Details Provider Name:Max Saha Nelda, 2020-03 0-12 10:30:00 AM, [address] [facility] [address] , , [place], [address], Insurance Providers Payer Name Payer Address Payer Phone Insured Name Patient Relati onship to Insured Coverage Start Date Coverage End Date [facility] [address] [facility] [phone] DWAYNE CEJA self
--- OUTSIDE RECORDS SUMMARY | 2021-02-07 11:51 | CCD ---
Author Author [facility] Organization [facility] Address Unknown Phone Unavailable Care Team Providers Care School Library Media Program Director Name Role Phone Max Lutz Unavailable PROBLEMS Type Condition ICD9-CM Code [id number] Code Onset Dates Condition S tatus W/U Status Risk SNOMED Code Notes Problem Dysthymia F34.1 Active confirmed 45170322 Problem Frequent menstruation N92.0 Active confirmed 95513772 Problem Generalized anxiety disorder F41.1 Active confirme d 83992744 Problem Rosacea L71.9 Active confirmed 109566301 Problem Dermatofibroma of left upper arm D23.62 Active confirmed 819416648 Problem Moderate asthma with exacerbation, unspecified w hether persistent J45.901 Active confirmed 915056038 Problem Hx of abnormal cervical Pap smear Z87.898 Active confirmed 249928262 Problem Dermatofibroma of back D23.5 Active confirmed 86242939 Problem Vitamin D deficiency E55.9 Active confirmed 71124212 Problem Acute right-sided low back pain with left-sided sciatica M54.42 Active confirmed 980030048 Problem Mild persistent asthma, unspecified whether complicated J45.30 Active confirmed 200923196 Problem Other chronic pain G89.29 Active confirmed 8 4479411 Problem Moderate episode of recurrent major depressive disorder F33.1 Active confirmed 623939891 Problem Abnormal findings on diagnostic imaging of breast R92.8 Active confirmed 554132025 Problem Herpetic lesion B00.9 Active confirmed 2351 3009 Problem Papanicolaou smear of cervix with positive high risk human papilloma virus (HPV) test R87.810 Active confirmed 856326298 Problem Panic attacks F41.0 Active confirmed 812574 000 Problem Lumbago with sciatica, left side M54.42 Active conf irmed 40006146 Problem Lumbago with sciatica, right side M54.41 Active confirmed 80384524 ALLERGIES Allergen (clinical drug ingredient) Drug/Non Drug Allergy do cumented on EMR Reaction Allergy Type Onset Date Status ciprofloxacin Cipro([facility] Code:[address]-69) Hives Drug Allergy Active Penicillin (For Allergies Use Only) Hives Drug Allerg y Active Mold/dust/pollen/ragweed sneeze/wheezing/itchy eyes Non Dr ug Allergy Active Cat dander Cat dander sneeze/itchy eyes Non Drug Allergy A ctive Strawberries Hives Non Drug Allergy Active ENCOUNTERS from 1977 to 2020-12-07 Encounter Location Date Provider Diagnosis [place] [address] [facility] [phone] [place] [address] Nov, Max Lutz IMMUNIZATIONS Vaccine Route Administration Date Status MMR 0.5mL Unknown May 28, 2017 Administered SOCIAL HISTORY Tobacco Use: Social History Observation Description Date Details (start date - stop date) Former Smoker Sex Assigned At : Social History Observation Description Sex Assigned At Unknown Education: Question Answer Notes Level of Education: College Language: Question Answer Notes Languages spoken: Mongolian Jewish: Question Answer Notes Jewish 33 None Sexual Hx: Question Answer Notes [...] proced ure for 1 days July, Not-Taking Albuterol Sulfate HFA 108 (90 Base) MCG/ACT 1 puff as needed Inhalation every 4 hrs for 30 Days July, Active Drisdol 1.25 MG (03069 UT) 1 capsule Orally Mar, Not-Taking Effexor 37.5 MG 1 tablet with food Orally Once a day for 30 day(s) Active PROCEDURES No Information RESULTS No Results REASON FOR VISIT FYI only MEDICAL (GENERAL) HISTORY Type Description Date Medical History asthma Medical History abscessed tooth removed 07/21/17 Medical History Major depressive disorder, s brittayn episode, severe without psychotic features Medical History [...] K Nelda, 2020-03 0-12 10:30:00 AM, [address] [facility] [address] , , [place], [address], Insurance Providers Payer Name Payer Address Payer Phone Insured Name Patient Relati onship to Insured Coverage Start Date Coverage End Date [facility] [address] [facility] [phone] DWAYNE CEJA self
[2021-02-07] MEDS ORDERED: BENZONATATE 100MG CAPSULE PO ONE (15:25)
--- NOTE | 2021-02-07 15:53 | REP ---
INDICATION: rsv bronchitis/sob. COMPARISON: 12/11/2019 the latest prior TECHNIQUE: PA and lateral FINDINGS: Bilateral hilar fullness has developed since the last exam. The heart is not enlarged. Lung downing are otherwise clear. The pleural angles are sharp the osseous structures are stable and intact. IMPRESSION: Bilateral hilar fullness. Contrast-enhanced CT of the chest is recommended. Hilar adenopathy cannot be ruled out. <Electronically signed by Morgan Lanier > 02/07/21 [id number]
--- OUTSIDE RECORDS SUMMARY | 2021-02-07 15:58 | CCD ---
Author Author [facility] Organization [facility] Address Unknown Phone Unavailable Support Name Relationship Address Phone [place] [address] [place] [address] GRICELDA MO(COUSIN) Next Of [facility] [address] [place] [address] [employer] [place] [address] GRICELDA MO Next Of [facility] [address] [place] [address] Mariah Amador DMD Next Of Kin [address] [place] [address] [facility] Next Of Kin [address] [place] [address] JANEY CEJA Next Of Kin [address] [address] UE Next Of Kin Unknown Unavailable Jie CEJA Next Of Kin [address] [place] [address] GRICELDA MO [address] [address] Unavailable Re-disclosure Warning The records that you [...] is protected by Article 27-F of the [facility] Public Health law. If you continue you may have access to information: Regarding HIV / AIDS; Provided by facilities licensed or operated by the [facility] Office of Mental Health; or Provided by the [facility] Office for People With Developmental Disabilities. If such information is present, then the following [facility] mandated warning applies: This information has [...] law may result in a fine or fdc sentence or both. A general authorization for the release of medical or other information is NOT sufficient authorization for further disc losure. Family History Family Member Name Family Member Gender Family Member Status Date o f Status Description Data Source(s) Unknown Male Problem MEDENT ([facility]) Unknown Male Problem MEDENT ([facility] ) Encounters Encounter Providers Location Date Indications Data Source(s ) Unknown [address] [facility] [place] [address] 12/12/2020 12:00:00 AM EDT eCW1 ([facility]) Unknown [address] [facility] [place] [address] 12/11/2020 12:00:00 AM EDT eCW1 ([facility]) Unknown [address] [facility] [place] [address] 12/07/2020 12:00:00 AM EDT eCW1 ([facility]) Outpatient 11/18/2020 11:49:14 AM EDT DocuTap ([facility]) Unknown [address] [facility] [place] [address] 09/05/2020 12:00:00 AM EDT eCW1 ([facility]) Unknown [address] [facility] [place] [address] 07/12/2020 12:00:00 AM EDT eCW1 ([facility]) Unknown [address] [facility] [address] 06/29/2020 12:00:00 AM EDT eCW1 ([facility]) Outpatient [address] [facility] [address] 06/28/2020 12:00:00 AM EDT eCW1 ([facility]) [place] [address] [facility] [address] 06/07/2020 12:00:00 AM EST eCW1 ([facility]) [place] [address] [facility] [address] 04/18/2020 12:00:00 AM EST eCW1 ([facility]) Unknown [address] [facility] [address] 04/12/2020 12:00:00 AM EST eCW1 ([facility]) Unknown [address] [facility] [address] 02/29/2020 12:00:00 AM EST eCW1 ([facility]) Outpatient [address] [facility] [address] 02/10/2020 12:00:00 AM EST eCW1 ([facility]) Outpatient [address] [facility] [address] 01/24/2020 12:00:00 AM EDT eCW1 ([facility]) Outpatient [address] [facility] [address] 01/20/2020 12:00:00 AM EDT eCW1 ([facility]) (WC PROC) WCenter Procedure [address] [place] [address] 01/17/2020 12:00:00 AM EDT eCW1 ([facility]) Unknown [address] [facility], [place] [address] 01/03/2020 12:00:00 AM EDT eCW1 ([facility]) Unknown [address] [facility] [address] 12/31/2019 12:00:00 AM EDT eCW1 ([facility]) Outpatient [address] [facility] [address] 12/30/2019 12:00:00 AM EDT eCW1 ([facility]) Immunizations Vaccine Date Status Description Data Source(s) COVID-19 VACCINE Moderna 07/13/2020 12:00:00 AM EDT completed [place] Vaccine Series Complete: YESThis Data wa s Submitted to [facility] Via [employer]. COVID-19 VACCINE Moderna 06/15/2020 12:00:00 AM EDT completed [place] Vaccine Series Complete: NOThis Data was Submitted to [facility] Via [employer]. Medications Medication Brand Name Start Date Product [...] type / Coverage type Policy ID Covered democrat ID Covered democrat's relationship to corado Policy Corado Plan Information [employer] COMMUNITY PLAN MCDO [id number] SP [id number] [facility] Health Maintenance Organization (HMO) [id number] Self [id number] [facility] I [id number] Self [id number] [facility] Commercial Insurance Co. [id number] Self [id number] ANSI-Medicaid [id number] ANSI-Medicaid [id number] ANSI-Medicaid [id number] ANSI-Medicaid [id number] ANSI-Medicaid [id number] ANSI-Medicaid [id number] ANSI-Medicaid [id number] Medicaid S [id number] S [id number] Managed Care - Community Plan [facility] P [id number] S [id number] ANSI-Medicaid [id number] [facility]-Medicaid [id number] [facility]-Medicaid [id number] [facility](MCAID) O [id number] S [id number] [facility] [id number] SP [id number] MEDICAID M [id number] S [id number] [facility] [id number] SP [id number] MEDICAID [id number] SP [id number] Medicaid S UNAVAILABLE S UNAVAILA BLE [facility] Community Plan Commercial [id number] Self [id number] O UNAVAILABLE UNAVAILA BLE SELF PAY ONLY [id number] SP [id number] [facility] COMMUNITY PLAN [facility] [id number] SP [id number] SELF PAY UNAVAILABLE SP UNAVAILA BLE [facility] [id number] SP [id number] [facility](MCAID) O [id number] S [id number] [facility]-Medicaid [id number] Problems, Conditions, and Diagnoses Code Display Name Description Problem Type Effective Dates Data Source(s) R92.8 [id number] Abnormal findings on diagnostic imaging o f breast Problem 06/27/2020 12:00:00 AM EDT eCW1 ([facility]) M54.41 Sciatica Lumbago with sciatica, right side Problem 04/13/2020 12:00:00 AM EST eCW1 ([facility]) M54.42 Sciatica Lumbago with sciatica, left side Problem 04/13/2020 12:00:00 AM EST eCW1 ([facility]) G89.29 Chronic pain Other chronic pain Problem 04/13/2020 12:0 0:00 AM EST eCW1 ([facility]) F41.0 [id number] Panic attacks Problem 01/28/2020 12:00:00 AM EDT eCW1 ([facility]) R87.810 [id number] Papanicolaou smear o f cervix with positive high risk human papilloma virus (HPV) test Problem 01/17/2020 12:00:00 AM EDT eCW1 ( [facility]) Surgeries/Procedures No Information Results ID Date Data Source [id number] 12/20/2020 12:00:00 AM EDT [facility] Name Value Range Interpretation Code Description Data Yomaira rce(s) Supporting Document(s) SARS-CoV2 Rapid Antigen Negative [facility] This lab was ordered by [facility] and reported by [facility]. ID Date Data Source [id number] 11/19/2020 12:00:00 AM EDT [place] Name Value Range Interpretation Code Description Data Yomaira rce(s) Supporting Document(s) SARS-CoV2 Rapid Antigen Negative [facility] This lab was ordered by [facility] and [facility] by [facility]. ID Date Data Source [id number] 06/22/2020 12:00:00 AM EDT [place] Name Value Range Interpretation Code Description Data Yomaira rce(s) Supporting Document(s) SARS coronavirus 2 Ag Covid_negative [facility] This lab was ordered by ALESSIO enriquez nd reported by [facility]. ID Date Data Source Test, Urine 01/17/2020 01:09:43 PM EDT eCW1 ([facility]) Name Value Range Interpretation Code Description Data Yomaira rce(s) Supporting Document(s) Choriogonadotropin.beta subunit ( test) [Presence] in U rine negative Test, Urine eCW1 ([facility]) yes Internal QC Acceptable (Y/N) e CW1 ([facility]) Procedure Social History Code Duration Value Status Description Data Source(s ) Smoking 12/12/2020 12:00:00 AM EDT Former Smoker completed Former Smoker eCW1 ([facility]) Smoking 12/12/2020 12:00:00 AM EDT Former Smoker completed Former Smoker eCW1 ([facility]) Smoking 06/28/2020 12:00:00 AM EDT Former Smoker completed Former Smoker eCW1 ([facility]) Smoking 06/28/2020 12:00:00 AM EDT Former Smoker completed Former Smoker eCW1 ([facility]) Smoking 06/28/2020 12:00:00 AM EDT Former Smoker completed Former Smoker eCW1 ([facility]) Smoking 06/28/2020 12:00:00 AM EDT Former Smoker completed Former Smoker eCW1 ([facility]) Smoking 06/28/2020 12:00:00 AM EDT Former Smoker completed Former Smoker eCW1 ([facility]) Smoking 06/06/2020 12:00:00 AM EST Former Smoker completed Former Smoker eCW1 ([facility]) Smoking 02/10/2020 12:00:00 AM EST Former Smoker completed Former Smoker eCW1 ([facility]) Smoking 02/10/2020 12:00:00 AM EST Former Smoker completed Former Smoker eCW1 ([facility]) Smoking 02/10/2020 12:00:00 AM EST Former Smoker completed Former Smoker eCW1 ([facility]) Smoking 02/10/2020 12:00:00 AM EST Former Smoker completed Former Smoker eCW1 ([facility]) Smoking 02/10/2020 12:00:00 AM EST Former Smoker completed Former Smoker eCW1 ([facility]) Smoking 02/10/2020 12:00:00 AM EST Former Smoker completed Former Smoker eCW1 ([facility]) Smoking 01/24/2020 12:00:00 AM EDT Former Smoker completed Former Smoker eCW1 ([facility]) Smoking 01/20/2020 12:00:00 AM EDT Former Smoker completed Former Smoker eCW1 ([facility]) Smoking 12/30/2019 12:00:00 AM EDT Current Smoker completed Curre nt Smoker eCW1 ([facility]) Smoking 12/30/2019 12:00:00 AM EDT Current Smoker completed Curre nt Smoker eCW1 ([facility]) Vital Signs ID Date Data Source UNK Name Value Range Interpretation Code Description Data Source(s) Body weight 227 [lb_av] 227 [lb_av] eCW1 ([facility]) Body height [in_i] eCW1 ([facility]) Body mass index (BMI) [Ratio] 36.63 kg/m2 36.63 kg/m2 eCW1 ([facility]) Heart rate 101 /min 101 /min eCW1 ([facility]) Respiratory rate 18 /min 18 /min eCW1 ([facility]) Body temperature 98.9 [degF] 98.9 [degF] eCW1 ( [facility]) Systolic blood pressure 110 mm[Hg] 110 mm[Hg] e CW1 ([facility]) Diastolic blood pressure 72 mm[Hg] 72 mm[Hg] eCW1 ([facility]) Body height 66 [in_i] 66 [in_i] [facility] ([facility], ) 5'6" Body weight 200.00 [lb_av] 200.00 [lb_av] MEDEN T ([facility]) Body mass index (BMI) [Ratio] 32.3 kg/m2 32.3 k g/m2 [facility] ([facility]) [place] body weight 130 [lb_av] 130 [lb_av] MEDEN T ([facility]) Body weight 90.720 kg 90.720 kg [facility] ([facility]) Body weight 232.0 [lb_av] 232.0 [lb_av] eCW1 ([facility]) Body height [in_i] eCW1 ([facility]) Body mass index (BMI) [Ratio] 37.44 kg/m2 37.44 kg/m2 W1 ([facility]) Heart rate 86 /min 86 /min eCW1 ([facility]) Respiratory rate 18 /min 18 /min eCW1 ([facility]) Body temperature 97.3 [degF] 97.3 [degF] eCW1 ( [facility]) Systolic blood pressure 116 mm[Hg] 116 mm[Hg] e CW1 ([facility]) Diastolic blood pressure 64 mm[Hg] 64 mm[Hg] eCW1 ([facility]) Body weight 231 [lb_av] 231 [lb_av] eCW1 ([facility]) Body height [in_i] eCW1 ([facility]) Body mass index (BMI) [Ratio] 37.28 kg/m2 37.28 kg/m2 eCW1 ([facility]) Heart rate 97 /min 97 /min eCW1 ([facility]) Respiratory rate 18 /min 18 /min eCW1 ([facility]) Body temperature 97.1 [degF] 97.1 [degF] eCW1 ( [facility]) Systolic blood pressure 108 mm[Hg] 108 mm[Hg] e CW1 ([facility]) Diastolic blood pressure 64 mm[Hg] 64 mm[Hg] eCW1 ([facility]) Body weight 225 [lb_av] 225 [lb_av] eCW1 ([facility]) Body height [in_i] eCW1 ([facility]) Body mass index (BMI) [Ratio] 36.31 kg/m2 36.31 kg/m2 eCW1 ([facility]) Heart rate 94 /min 94 /min eCW1 ([facility]) Respiratory rate 18 /min 18 /min eCW1 ([facility]) Body temperature 97.5 [degF] 97.5 [degF] eCW1 ( [facility]) Systolic blood pressure 112 mm[Hg] 112 mm[Hg] e CW1 ([facility]) Diastolic blood pressure 64 mm[Hg] 64 mm[Hg] eCW1 ([facility]) Body weight 224 [lb_av] 224 [lb_av] eCW1 ([facility]) Body height [in_i] eCW1 ([facility]) Body mass index (BMI) [Ratio] 36.15 kg/m2 36.15 kg/m2 eCW1 ([facility]) Systolic blood pressure 114 mm[Hg] 114 mm[Hg] e CW1 ([facility]) Diastolic blood pressure 68 mm[Hg] 68 mm[Hg] eCW1 ([facility]) Body weight 221 [lb_av] 221 [lb_av] eCW1 ([facility]) Body height [in_i] eCW1 ([facility]) Body mass index (BMI) [Ratio] 35.67 kg/m2 35.67 kg/m2 eCW1 ([facility]) Heart rate 90 /min 90 /min eCW1 ([facility]) Respiratory rate 18 /min 18 /min eCW1 ([facility]) Body temperature 97.9 [degF] 97.9 [degF] eCW1 ( [facility]) Systolic blood pressure 112 mm[Hg] 112 mm[Hg] e CW1 ([facility]) Diastolic blood pressure 70 mm[Hg] 70 mm[Hg] eCW1 ([facility])
[2021-02-07] MEDS ORDERED: NS 1,000 ML IV ONE (16:05)
[2021-02-07] MEDS: COMBIVENT RESPIMAT 100-20MCG INHALER 4GM INH SCH ×2 (16:15→16:28)
[2021-02-07 16:39] LABS: BASO % 0.3 % (0.0-1.0); EOS % 0.5 % (0.0-3.0); LYMPH # 1.1 10^3/uL (1.5-5.0); LYMPH % 14.7 % (24.0-44.0); MEAN CORPUSCULAR HEMOGLOBIN 32.7 pg (27.0-33.0); MEAN CORPUSCULAR HGB CONC 33.3 g/dl (32.0-36.5); MEAN CORPUSCULAR VOLUME 98.2 fl (80.0-96.0); MONO # 0.5 10^3/uL (0.0-0.8); MONO % 6.9 % (2.0-8.0); NEUTROPHILS # 5.7 10^3/uL (1.5-8.5); NEUTROPHILS % 77.3 % (36.0-66.0); PLATELET COUNT, AUTOMATED 217 10^3/uL (150-450); RED BLOOD COUNT 3.97 10^6/uL (4.00-5.40); WHITE BLOOD COUNT 7.4 10^3/uL (4.0-10.0)
[2021-02-07] MEDS ORDERED: POTASSIUM CHLORIDE 10MEQ SR TABLET PO ONE ×2 (17:30→23:00)
[2021-02-07] MEDS ORDERED: ISOVUE-370 76% 100ML VIAL As Ordered ONE (17:37)
--- NOTE | 2021-02-07 18:19 | REPVR ---
PROCEDURE INFORMATION: Exam: CTA Chest With Contrast Exam date and time: 02/07/2021 5:48 PM Age: 45 years old Clinical indication: Cough and dyspnea; Additional info: Cough, SOB, abnormal cxr TECHNIQUE: Imaging protocol: Computed tomographic angiography of the chest with contrast. 3D rendering (Not supervised by radiologist): MIP and/or 3D reconstructed images were created by the technologist. Radiation optimization: All CT scans at this facility use at least one of these dose optimization techniques: automated exposure control; mA and/or kV adjustment per patient size (includes targeted exams where dose is matched to clinical indication); or iterative reconstruction. Contrast material: ISOVUE 370; Contrast volume: 75 ml; Contrast route: INTRAVENOUS (IV); COMPARISON: CT ANGIO CHEST 07/04/2017 2:26 PM FINDINGS: Pulmonary arteries: There are no pulmonary emboli. Aorta: There is no aortic dissection or aneurysm. Lungs: Stable 3 mm noncalcified nodule right lower lobe. No follow-up suggested according to Fleischner guidelines. Mild thickening of the lower lobe airways may suggest reactive airway disease or bronchitis. Lungs otherwise clear. Pleural spaces: Unremarkable. No pneumothorax. No pleural effusion. Heart: Unremarkable. No cardiomegaly. No pericardial effusion. Lymph nodes: Calcified right hilar lymph node. Bones/joints: Unremarkable. No acute fracture. Soft tissues: Unremarkable. IMPRESSION: 1. There is no aortic dissection or aneurysm. 2. There are no pulmonary emboli. 3. No acute pulmonary parenchymal abnormalities. Electronically signed by: Kishan Ochoa On 02/07/2021 18:18:47 PM
[2021-02-07] MEDS ORDERED: methylPREDNISolone 125MG 2ML VIAL IV ONE (18:25)
[2021-02-07 19:23] VITALS: O2SAT 97
[2021-02-07 20:31] LABS: RSV AMPLIFICATION POSITIVE (NEGATIVE)
[2021-02-07] MEDS ORDERED: ALBUTEROL SULFATE 2.5 MG/0.5 ML INH NEB SOLN NEB ONE (20:55)
[2021-02-07] MEDS ORDERED: MUCI600T31 PO (21:58)
[2021-02-07] MEDS ORDERED: ALLE10TA62 PO (21:58)
[2021-02-07] MEDS ORDERED: HOME MED LIST COMPLETE! XX SCH (22:00)
[2021-02-07] MEDS: MAG SULF 1GM/100ML (MAG RUN) 1 GM in IV 1 EA IV SCH ×2 (22:43→22:44)
[2021-02-07] MEDS ORDERED: ALBUTEROL SULFATE 2.5 MG/0.5 ML INH NEB SOLN INH PRN (23:00)
[2021-02-07] MEDS ORDERED: ALBUTEROL 90 MCG/ACT 8GM HFA INHALER INH PRN (23:00)
--- OUTSIDE RECORDS SUMMARY | 2021-02-07 23:14 | CCD ---
Author Author [facility] Organization [facility] Address Unknown Phone Unavailable Support Name Relationship Address [place] [address] [place] [address] GRICELDA MO(COUSIN) Next Of [facility] [address] [place] [address] [employer] [place] [address] GRICELDA MO Next Of [facility] [address] [place] [address] Mariah Amador DMD Next Of Kin [address] [place] [address] [facility] Next Of Kin [address] [place] [address] JANEY CEJA Next Of Kin [address] [address] UE Next Of Kin Unknown Unavailable Jie CEJA Next Of Kin [address] [place] [address] GRICELDA MO [address] [address] Unavailable Re-disclosure Warning The records that you [...] is protected by Article 27-F of the [facility] Public Health law. If you continue you may have access to information: Regarding HIV / AIDS; Provided by facilities licensed or operated by the [facility] Office of Mental Health; or Provided by the [facility] Office for People With Developmental Disabilities. If such information is present, then the following [facility] mandated warning applies: This information has been [...] law may result in a fine or residential sentence or both. A general authorization for the release of medical or other information is NOT sufficient authorization for further disc losure. Family History Family Member Name Family Member Gender Family Member Status Date o f Status Description Data Source(s) Unknown Male Problem MEDENT ([facility]) Unknown Male Problem MEDENT ([facility] ) Encounters Encounter Providers Location Date Indications Data Source(s ) Unknown [address] [facility] [address] [address] 12/12/2020 12:00:00 AM EDT eCW1 ([facility]) Unknown [address] [facility] [address] [address] 12/11/2020 12:00:00 AM EDT eCW1 ([facility]) Unknown [address] [facility] [address] [address] 12/07/2020 12:00:00 AM EDT eCW1 ([facility]) Outpatient 11/18/2020 11:49:14 AM EDT DocuTap ([facility]) Unknown [address] [facility] [place] [address] 09/05/2020 12:00:00 AM EDT eCW1 ([facility]) Unknown [address] [facility] [address] [address] 07/12/2020 12:00:00 AM EDT eCW1 ([facility]) Unknown [address] [facility] [place] [address] 06/29/2020 12:00:00 AM EDT eCW1 ([facility]) Outpatient [address] [facility] [address] 06/28/2020 12:00:00 AM EDT eCW1 ([facility]) Unknown [address] [facility] [place] [address] 06/07/2020 12:00:00 AM EST eCW1 ([facility]) Unknown [address] [facility] [place] [address] 04/18/2020 12:00:00 AM EST eCW1 ([facility]) Unknown [address] [facility] [place] [address] 04/12/2020 12:00:00 AM EST eCW1 ([facility]) Unknown [address] [facility] [place] [address] 02/29/2020 12:00:00 AM EST eCW1 ([facility]) Outpatient [address] [facility] [place] [address] 02/10/2020 12:00:00 AM EST eCW1 ([facility]) Outpatient [address] [facility] [place] [address] 01/24/2020 12:00:00 AM EDT eCW1 ([facility]) Outpatient [address] [facility] [place] [address] 01/20/2020 12:00:00 AM EDT eCW1 ([facility]) (WC PROC) [facility] Procedure [address] [place] [address] 01/17/2020 12:00:00 AM EDT eCW1 ([facility]) Unknown [address] [facility] [place] [address] 01/03/2020 12:00:00 AM EDT eCW1 ([facility]) Unknown [address] [facility] [place] [address] 12/31/2019 12:00:00 AM EDT eCW1 ([facility]) Outpatient [address] [facility] [place] [address] 12/30/2019 12:00:00 AM EDT eCW1 ([facility]) Immunizations Vaccine Date Status Description Data Source(s) COVID-19 VACCINE Moderna 07/13/2020 12:00:00 AM EDT completed [place] Vaccine Series Complete: YESThis Data wa s Submitted to [facility]. COVID-19 VACCINE Moderna 06/15/2020 12:00:00 AM EDT completed [place] Vaccine Series Complete: NOThis Data was Submitted to [facility]. Medications Medication Brand Name Start Date Product [...] Corado Plan Information [employer] MCDO [id number] SP [id number] [facility] Health Maintenance Organization (HMO) [id number] Self [id number] [facility] I [id number] Self [id number] [facility] Commercial Insurance Co. [id number] Self [id number] ANSI-Medicaid [id number] ANSI-Medicaid [id number] ANSI-Medicaid [id number] ANSI-Medicaid [id number] ANSI-Medicaid [id number] ANSI-Medicaid [id number] ANSI-Medicaid [id number] Medicaid S [id number] S [id number] Managed Care - Community Plan [facility] P [id number] S [id number] ANSI-Medicaid [id number] [facility]-Medicaid [id number] [facility]-Medicaid [id number] [facility](MCAID) O [id number] S [id number] [facility] [id number] SP [id number] MEDICAID M [id number] S [id number] [facility] [id number] SP [id number] MEDICAID [id number] Medicaid S UNAVAILABLE S UNAVAILA BLE [facility] Community Plan Commercial [id number] Self [id number] O UNAVAILABLE UNAVAILA BLE SELF PAY ONLY [id number] SP [id number] [facility] COMMUNITY PLAN [facility] [id number] SP [id number] SELF PAY UNAVAILABLE SP [facility]A BLE [facility] [id number] SP [id number] [facility](MCAID) O [id number] S [id number] [facility]-Medicaid [id number] Problems, Conditions, and Diagnoses Code Display Name Description Problem Type Effective Dates Data Source(s) R92.8 [id number] Abnormal findings on diagnostic imaging o f breast Problem 06/27/2020 12:00:00 AM EDT eCW1 ([facility]) M54.41 Sciatica Lumbago with sciatica, right side Problem 04/13/2020 12:00:00 AM EST eCW1 ([facility]) M54.42 Sciatica Lumbago with sciatica, left side Problem 04/13/2020 12:00:00 AM EST eCW1 ([facility]) G89.29 Chronic pain Other chronic pain Problem 04/13/2020 12:0 0:00 AM EST eCW1 ([facility]) F41.0 [id number] Panic attacks Problem 01/28/2020 12:00:00 AM EDT eCW1 ([facility]) R87.810 [id number] Papanicolaou smear o f cervix with positive high risk human papilloma virus (HPV) test Problem 01/17/2020 12:00:00 AM EDT eCW1 ( [facility]) Surgeries/Procedures No Information Results ID Date Data Source [id number] 12/20/2020 12:00:00 AM EDT [facility] Name Value Range Interpretation Code Description Data Yomaira rce(s) Supporting Document(s) SARS-CoV2 Rapid Antigen Negative [facility] This lab was ordered by [facility] and reported by [facility]. ID Date Data Source [id number] 11/19/2020 12:00:00 AM EDT [facility] Name Value Range Interpretation Code Description Data Yomaira rce(s) Supporting Document(s) SARS-CoV2 Rapid Antigen Negative [facility] This lab was ordered by [facility] and reported by [facility]. ID Date Data Source [id number] 06/22/2020 12:00:00 AM EDT [facility] Name Value Range Interpretation Code Description Data Yomaira rce(s) Supporting Document(s) SARS coronavirus 2 Ag Covid_negative [facility] This lab was ordered by ALESSIO enriquez nd reported by [facility]. ID Date Data Source Test, Urine 01/17/2020 01:09:43 PM EDT eCW1 ([facility]) Name Value Range Interpretation Code Description Data Yomaira rce(s) Supporting Document(s) Choriogonadotropin.beta subunit ( test) [Presence] in U rine negative Test, Urine eCW1 ([facility]) yes Internal QC Acceptable (Y/N) e CW1 ([facility]) Procedure Social History Code Duration Value Status Description Data Source(s ) Smoking 12/12/2020 12:00:00 AM EDT Former Smoker completed Former Smoker eCW1 ([facility]) Smoking 12/12/2020 12:00:00 AM EDT Former Smoker completed Former Smoker eCW1 ([facility]) Smoking 06/28/2020 12:00:00 AM EDT Former Smoker completed Former Smoker eCW1 ([facility]) Smoking 06/28/2020 12:00:00 AM EDT Former Smoker completed Former Smoker eCW1 ([facility]) Smoking 06/28/2020 12:00:00 AM EDT Former Smoker completed Former Smoker eCW1 ([facility]) Smoking 06/28/2020 12:00:00 AM EDT Former Smoker completed Former Smoker eCW1 ([facility]) Smoking 06/28/2020 12:00:00 AM EDT Former Smoker completed Former Smoker eCW1 ([facility]) Smoking 06/06/2020 12:00:00 AM EST Former Smoker completed Former Smoker eCW1 ([facility]) Smoking 02/10/2020 12:00:00 AM EST Former Smoker completed Former Smoker eCW1 ([facility]) Smoking 02/10/2020 12:00:00 AM EST Former Smoker completed Former Smoker eCW1 ([facility]) Smoking 02/10/2020 12:00:00 AM EST Former Smoker completed Former Smoker eCW1 ([facility]) Smoking 02/10/2020 12:00:00 AM EST Former Smoker completed Former Smoker eCW1 ([facility]) Smoking 02/10/2020 12:00:00 AM EST Former Smoker completed Former Smoker eCW1 ([facility]) Smoking 02/10/2020 12:00:00 AM EST Former Smoker completed Former Smoker eCW1 ([facility]) Smoking 01/24/2020 12:00:00 AM EDT Former Smoker completed Former Smoker eCW1 ([facility]) Smoking 01/20/2020 12:00:00 AM EDT Former Smoker completed Former Smoker eCW1 ([facility]) Smoking 12/30/2019 12:00:00 AM EDT Current Smoker completed Curre nt Smoker eCW1 ([facility]) Smoking 12/30/2019 12:00:00 AM EDT Current Smoker completed Curre nt Smoker eCW1 ([facility]) Vital Signs ID Date Data Source UNK Name Value Range Interpretation Code Description Data Source(s) Body weight 227 [lb_av] 227 [lb_av] eCW1 ([facility]) Body height [in_i] eCW1 ([facility]) Body mass index (BMI) [Ratio] 36.63 kg/m2 36.63 kg/m2 eCW1 ([facility]) Heart rate 101 /min 101 /min eCW1 ([facility]) Respiratory rate 18 /min 18 /min eCW1 ([facility]) Body temperature 98.9 [degF] 98.9 [degF] eCW1 ( [facility]) Systolic blood pressure 110 mm[Hg] 110 mm[Hg] e CW1 ([facility]) Diastolic blood pressure 72 mm[Hg] 72 mm[Hg] eCW1 ([facility]) Body height 66 [in_i] 66 [in_i] [facility] ([facility], ) 5'6" Body weight 200.00 [lb_av] 200.00 [lb_av] MEDEN T ([facility]) Body mass index (BMI) [Ratio] 32.3 kg/m2 32.3 k g/m2 [facility] ([facility]) Echo body weight 130 [lb_av] 130 [lb_av] MEDEN T ([facility]) Body weight 90.720 kg 90.720 kg [facility] ([facility]) Body weight 232.0 [lb_av] 232.0 [lb_av] eCW1 ([facility]) Body height [in_i] eCW1 ([facility]) Body mass index (BMI) [Ratio] 37.44 kg/m2 37.44 kg/m2 W1 ([facility]) Heart rate 86 /min 86 /min eCW1 ([facility]) Respiratory rate 18 /min 18 /min eCW1 ([facility]) Body temperature 97.3 [degF] 97.3 [degF] eCW1 ( [facility]) Systolic blood pressure 116 mm[Hg] 116 mm[Hg] e CW1 ([facility]) Diastolic blood pressure 64 mm[Hg] 64 mm[Hg] eCW1 ([facility]) Body weight 231 [lb_av] 231 [lb_av] eCW1 ([facility]) Body height [in_i] eCW1 ([facility]) Body mass index (BMI) [Ratio] 37.28 kg/m2 37.28 kg/m2 eCW1 ([facility]) Heart rate 97 /min 97 /min eCW1 ([facility]) Respiratory rate 18 /min 18 /min eCW1 ([facility]) Body temperature 97.1 [degF] 97.1 [degF] eCW1 ( [facility]) Systolic blood pressure 108 mm[Hg] 108 mm[Hg] e CW1 ([facility]) Diastolic blood pressure 64 mm[Hg] 64 mm[Hg] eCW1 ([facility]) Body weight 225 [lb_av] 225 [lb_av] eCW1 ([facility]) Body height [in_i] eCW1 ([facility]) Body mass index (BMI) [Ratio] 36.31 kg/m2 36.31 kg/m2 eCW1 ([facility]) Heart rate 94 /min 94 /min eCW1 ([facility]) Respiratory rate 18 /min 18 /min eCW1 ([facility]) Body temperature 97.5 [degF] 97.5 [degF] eCW1 ( [facility]) Systolic blood pressure 112 mm[Hg] 112 mm[Hg] e CW1 ([facility]) Diastolic blood pressure 64 mm[Hg] 64 mm[Hg] eCW1 ([facility]) Body weight 224 [lb_av] 224 [lb_av] eCW1 ([facility]) Body height [in_i] eCW1 ([facility]) Body mass index (BMI) [Ratio] 36.15 kg/m2 36.15 kg/m2 eCW1 ([facility]) Systolic blood pressure 114 mm[Hg] 114 mm[Hg] e CW1 ([facility]) Diastolic blood pressure 68 mm[Hg] 68 mm[Hg] eCW1 ([facility]) Body mass index (BMI) [Ratio] 35.67 kg/m2 35.67 kg/m2 eCW1 ([facility]) Heart rate 90 /min 90 /min eCW1 ([facility]) Body weight 221 [lb_av] 221 [lb_av] eCW1 ([facility]) Body height [in_i] eCW1 ([facility]) Respiratory rate 18 /min 18 /min eCW1 ([facility]) Body temperature 97.9 [degF] 97.9 [degF] eCW1 ( [facility]) Systolic blood pressure 112 mm[Hg] 112 mm[Hg] e CW1 ([facility]) Diastolic blood pressure 70 mm[Hg] 70 mm[Hg] eCW1 ([facility])
--- NOTE | 2021-02-07 23:43 | HPEPDOC ---
[facility] Medical History & Physical Date of Admission Feb 07, 2021 Date of Service: Feb 07, 2021 History and Physical CHIEF COMPLAINT: Shortness of breath HISTORY OF PRESENT ILLNESS: 45-year-old female with a past medical history of asthma presented to the ER with a 4-day history of shortness of breath and wheezing. Patient developed symptoms last Friday, and began taking her prednisone that she had from her prior exacerbation. She has been taking 40 mg of prednisone daily. She is also been using her albuterol inhaler 2 puffs every 4 hours. She was seen in urgent care, and was diagnosed with RSV and was advised to proceed to the hospital. Upon presentation presentation to ER she was given 125 mg of IV Solu-Medrol as well as magnesium. She was given numerous albuterol treatments. Found to have hypokalemia likely secondary to albuterol use. Patient is saturating well on exertion and room air at above 95%. However she continues to have profound wheezing as well as acute shortness of breath. Patient will be admitted to hospitalist service for the treatment of acute asthma exacerbation. PAST MEDICAL HISTORY: Asthma with prior exacerbation PAST SURGICAL HISTORY: Patient denies prior surgical SOCIAL HISTORY: Patient denies smoking Patient denies etoh use Patient denies illicit drug use FAMILY HISTORY: Reviewed with patient, no contributory family history ALLERGIES: Please see below. REVIEW OF SYSTEMS: 10 point ROS conducted, relevant findings noted on the HPI. HOME MEDICATIONS: Please see below. PHYSICAL EXAMINATION: VITAL SIGNS: please see below General: NAD, comfortable HEENT: PERRLA, EOMI, sclerae clear Neck: supple, normal ROM, no JVD Respiratory: Profound wheezing in bilateral lung downing, no rales no crackles no rhonchi. Fair inspiratory effort. CVS: RRR, normal S1, S2, no murmurs Abdo: soft, no masses, no hepatosplenomegaly, BS+, no rebound tenderness Extremities: no edema, pulses 2+ MSK: no joint deformities, normal ROM Neuro: no focal neuro deficits, moving all 4 extremities, CN2-12 intact. Strength 5/5 in all 4 extremities. No nystagmus. Psych: calm, cooperative, AAO x 3 LABORATORY DATA: See below. IMAGING: CTA PE (02/07/21): 1. There is no aortic dissection or aneurysm. 2. There are no pulmonary emboli. 3. No acute pulmonary parenchymal abnormalities. CXR (02/07/21): Bilateral hilar fullness. Contrast-enhanced CT of the chest is recommended. Hilar adenopathy cannot be ruled out. MICROBIOLOGY: Please see below. ASSESSMENT: 45-year-old female with a past medical history of asthma, presented with acute asthma exacerbation as well as hyperkalemia secondary to albuterol use. Patient be admitted to hospital service for treatment of acute exacerbation. Patient is currently saturating well on room air and upon exertion. . PLAN: 1. Acute asthma exacerbation:2/2 RSV infection. Normal CTA PE study. Saturating well. continues to have persistent audible wheeze. C/w duonebs. Will c/w solumedrol 80 mg q8h. Start Will need referral to pulmonology on DC. 2. Hx of Hepatic hemangioma-outpatient followed 3. GERD: pantoprazole 4. Hypokalemia: K 2.9. likely 2/2 albuterol use. Replaced with 80 meq PO KCL. Repeat BMP in am. DVT prophylaxis SCDs and teds. Dispo: Admit for observation, stay likely to span less than 2 midnights. Vital Signs Vital Signs Date Time Temp Pulse Resp B/P (MAP) Pulse Ox O2 Delivery O2 Flow Rate FiO2 02/07/21 22:56 79 20 149/84 (105) 96 Room Air 02/07/21 19:53 98.2 Laboratory Data Labs 24H Laboratory Tests 2 02/07/21 16:22: Immature Granulocyte % (Auto) 0.3, Neutrophils (%) (Auto) 77.3H, Lymphocytes (%) (Auto) 14.7L, Monocytes (%) (Auto) 6.9, Eosinophils (%) (Auto) 0.5, Basophils (%) (Auto) 0.3, Neutrophils # (Auto) 5.7, Lymphocytes # (Auto) 1.1L, Monocytes # (Auto) 0.5, Eosinophils # (Auto) 0.0, Basophils # (Auto) 0.0, Nucleated Red Blood Cells % (auto) 0.0 02/07/21 16:57: POC Glucose (Misc Panel) 85, POC Sodium (Misc Panel) 139, POC Potassium (Misc Panel) 2.9*L, POC Chloride (Misc Panel) 101, POC Total CO2 (Misc Panel) 24.0, POC Blood Urea Nitrogen (Misc Panel 3L, POC Ionized Calcium (Misc Panel) 4.9, POC Creatinine (Misc Panel) 0.6, POC Hematocrit (Misc Panel) 45.0 02/07/21 17:02: POC Beta HCG, Quantitative < 5.0 02/07/21 19:44: Coronavirus (COVID-19)(PCR) NEGATIVE, Influenza Type A (RT-PCR) NEGATIVE, Influenza Type B (RT-PCR) NEGATIVE, Respiratory Syncytial Virus (PCR) POSITIVE CBC/BMP Laboratory Tests 02/07/21 16:22 Home Medications Scheduled Cetirizine HCl (24Hour Allergy) 10 Mg Tablet, 10 MG PO DAILY Guaifenesin (Mucinex) 600 Mg Tab.er.12h, 600 MG PO BID Venlafaxine HCl (Venlafaxine HCl ER) 37.5 Mg Cap.er.24h, 37.5 MG PO DAILY Scheduled PRN Albuterol Sulf (Albuterol Sulfate) 2.5 Mg/3 Ml Nebu, 2.5 MG INH QID PRN for SOB/ WHEEZING Albuterol Sulfate (Ventolin Hfa) 108 Mcg/Act Aer, 108 MCG INH DAILY PRN for SOB/WHEEZING Allergies Coded Allergies: Penicillins (Verified Allergy, Severe, THROAT CLOSES/HIVES, 01/03/20) ciprofloxacin (Verified Allergy, Unknown, 01/03/20) A-FIB/CHADSVASC A-FIB History Current/History of A-Fib/PAF?: No GRIS NESS MD Feb 07, 2021 23:43
[2021-02-08] MEDS: guaiFENesin ER 600 MG TAB PO SCH ×3 (03:02→22:13)
[2021-02-08 04:00] VITALS: BP 138/88
[2021-02-08] MEDS: ACETAMINOPHEN TAB 650MG DOSE (2X325MG) PO PRN ×4 (04:16→22:14)
[2021-02-08] MEDS: methylPREDNISolone 125MG 2ML VIAL IV SCH ×4 (04:17→13:10)
[2021-02-08 06:00] VITALS: BP 103/59
[2021-02-08] MEDS ORDERED: INFLUENZA QUADRIVALENT PF VACCINE 0.5ML SYRINGE IM ONE (09:00)
[2021-02-08] MEDS: CETIRIZINE (ZyrTEC) 10 MG TAB PO SCH (10:19)
[2021-02-08] MEDS: VENLAFAXINE **XR** 37.5 MG CAPSULE PO SCH (10:19)
[2021-02-08 14:00] VITALS: BP 115/81
[2021-02-08] MEDS: predniSONE 20 MG TAB PO SCH (15:16)
--- NOTE | 2021-02-08 15:38 | IPNPDOC ---
Text Note Date of Service The patient was seen on 02/08/21. NOTE SUBJECTIVE: -Feels better than when she came in. -Has rib pain from coughing OBJECTIVE: VITAL SIGNS: please see below General: NAD, comfortable HEENT: PERRLA, EOMI, sclerae clear Neck: supple, normal ROM, no JVD Respiratory: Much improved wheezing in bilateral lung downing, no rales no crackles no rhonchi. Fair inspiratory effort. CVS: RRR, normal S1, S2, no murmurs Abdo: soft, no masses, no hepatosplenomegaly, BS+, no rebound tenderness Extremities: no edema, pulses 2+ MSK: no joint deformities, normal ROM Neuro: no focal neuro deficits, moving all 4 extremities, CN2-12 intact. Strength 5/5 in all 4 extremities. No nystagmus. Psych: calm, cooperative, AAO x 3 LABORATORY DATA: Reviewed IMAGING: CTA PE (02/07/21): 1. There is no aortic dissection or aneurysm. 2. There are no pulmonary emboli. 3. No acute pulmonary parenchymal abnormalities. CXR (02/07/21): Bilateral hilar fullness. Contrast-enhanced CT of the chest is recommended. Hilar adenopathy cannot be ruled out. MICROBIOLOGY: Please see below. ASSESSMENT: 45-year-old female with a past medical history of asthma, presented with acute asthma exacerbation as well as hyperkalemia secondary to albuterol use. Patient be admitted to hospital service for treatment of acute exacerbation. Patient is currently saturating well on room air and upon exertion. PLAN: 1. Acute asthma exacerbation:2/2 RSV infection. Normal CTA PE study. Saturating well. -Scheduled duonebs q6h -PRN albuterol nebs q4hp for SOB and wheezing -DC solumedrol, begin pred 40 PO daily -mucinex -tessalon perles 2. Hx of Hepatic hemangioma-outpatient followed 3. GERD: pantoprazole 4. Hypokalemia: -Check BMP now after K repletion DVT prophylaxis SCDs and teds Dispo: obs, medsurg VS,Fishbone, I+O VS, Fishbone, I+O Laboratory Tests 02/07/21 16:22 Vital Signs Date Time Temp Pulse Resp B/P (MAP) Pulse Ox O2 Delivery O2 Flow Rate FiO2 02/08/21 14:00 97.9 87 20 115/81 (92) 94 02/08/21 06:00 Room Air JORDON ENRIQUE MD Feb 08, 2021 15:38
[2021-02-08] MEDS: IPRATROPIUM 0.5MG/ALBUTEROL 2.5MG INH SOL UD 3ML (DUONEB) NEB SCH ×2 (15:50→19:47)
[2021-02-08] MEDS: BENZONATATE 100MG CAPSULE PO SCH ×2 (16:20→22:13)
[2021-02-08 17:22] LABS: HEMATOCRIT 41.2 % (36.0-47.0); HEMOGLOBIN 14.1 g/dl (12.0-15.5); MEAN CORPUSCULAR HEMOGLOBIN 32.8 pg (27.0-33.0); MEAN CORPUSCULAR HGB CONC 34.2 g/dl (32.0-36.5); MEAN CORPUSCULAR VOLUME 95.8 fl (80.0-96.0); PLATELET COUNT, AUTOMATED 248 10^3/uL (150-450); WHITE BLOOD COUNT 11.2 10^3/uL (4.0-10.0)
[2021-02-08 17:31] LABS: BLOOD UREA NITROGEN 15 MG/DL (7-18); CALCIUM LEVEL 9.9 MG/DL (8.5-10.1); CARBON DIOXIDE LEVEL 23 MEQ/L (21-32); CHLORIDE LEVEL 107 MEQ/L (98-107); CREATININE FOR GFR 0.86 MG/DL (0.55-1.30); GLOMERULAR FILTRATION RATE > 60.0 (>58); GLUCOSE, FASTING 141 MG/DL (70-100); POTASSIUM SERUM 4.4 MEQ/L (3.5-5.1); SODIUM LEVEL 138 MEQ/L (136-145)
[2021-02-08 20:59] VITALS: BP 118/81
[2021-02-09] MEDS: IPRATROPIUM 0.5MG/ALBUTEROL 2.5MG INH SOL UD 3ML (DUONEB) NEB SCH ×4 (02:06→20:22)
[2021-02-09 06:03] VITALS: BP 142/83
[2021-02-09] MEDS ORDERED: PRED20TA PO (07:49)
[2021-02-09] MEDS ORDERED: BENZ-18 PO (07:49)
[2021-02-09] MEDS ORDERED: ADVA115A INH (07:49)
[2021-02-09 08:12] LABS: HEMATOCRIT 40.3 % (36.0-47.0); HEMOGLOBIN 13.7 g/dl (12.0-15.5); MEAN CORPUSCULAR HEMOGLOBIN 32.9 pg (27.0-33.0); MEAN CORPUSCULAR VOLUME 96.6 fl (80.0-96.0); PLATELET COUNT, AUTOMATED 251 10^3/uL (150-450); RED BLOOD COUNT 4.17 10^6/uL (4.00-5.40); WHITE BLOOD COUNT 10.2 10^3/uL (4.0-10.0)
[2021-02-09 08:29] LABS: BLOOD UREA NITROGEN 13 MG/DL (7-18); CALCIUM LEVEL 9.2 MG/DL (8.5-10.1); CARBON DIOXIDE LEVEL 26 MEQ/L (21-32); CHLORIDE LEVEL 109 MEQ/L (98-107); CREATININE FOR GFR 0.72 MG/DL (0.55-1.30); GLOMERULAR FILTRATION RATE > 60.0 (>58); GLUCOSE, FASTING 100 MG/DL (70-100); POTASSIUM SERUM 3.7 MEQ/L (3.5-5.1); SODIUM LEVEL 142 MEQ/L (136-145)
[2021-02-09] MEDS: guaiFENesin ER 600 MG TAB PO SCH ×2 (09:27→22:07)
[2021-02-09] MEDS: BENZONATATE 100MG CAPSULE PO SCH ×3 (09:27→22:07)
[2021-02-09] MEDS: predniSONE 20 MG TAB PO SCH ×2 (09:28→22:08)
[2021-02-09] MEDS: CETIRIZINE (ZyrTEC) 10 MG TAB PO SCH (09:28)
[2021-02-09] MEDS: ACETAMINOPHEN TAB 650MG DOSE (2X325MG) PO PRN (09:28)
[2021-02-09] MEDS: VENLAFAXINE **XR** 37.5 MG CAPSULE PO SCH (09:29)
[2021-02-09] MEDS ORDERED: traMADol 50 MG TAB PO PRN (10:00)
[2021-02-09] MEDS ORDERED: KETOROLAC TROMETHAMINE 10 MG TAB PO PRN (10:50)
[2021-02-09] MEDS: PANTOPRAZOLE 40MG TAB (PROTONIX) PO SCH ×2 (13:17→22:08)
[2021-02-09 14:00] VITALS: BP 135/83
--- NOTE | 2021-02-09 14:01 | IPNPDOC ---
Text Note Date of Service The patient was seen on 02/09/21. NOTE SUBJECTIVE: -Has rib pain from coughing. However refuses to take any medication beyond tylenol. She has a brother who from opioid overdose and cannot bring herself to taking stronger pain medications, even for a very short course. We discussed it length and she finally agreed to taking toradol. OBJECTIVE: VITAL SIGNS: please see below General: NAD, comfortable HEENT: PERRLA, EOMI, sclerae clear Neck: supple, normal ROM, no JVD Respiratory: Very rare wheezing in bilateral lung downing, no rales no crackles, has rhonchi today. Fair inspiratory effort. CVS: RRR, normal S1, S2, no murmurs Abdo: soft, no masses, no hepatosplenomegaly, BS+, no rebound tenderness Extremities: no edema, pulses 2+ MSK: no joint deformities, normal ROM Neuro: no focal neuro deficits, moving all 4 extremities, CN2-12 intact. Strength 5/5 in all 4 extremities. No nystagmus. Psych: calm, cooperative, AAO x 3 LABORATORY DATA: Reviewed IMAGING: CTA PE (02/07/21): 1. There is no aortic dissection or aneurysm. 2. There are no pulmonary emboli. 3. No acute pulmonary parenchymal abnormalities. CXR (02/07/21): Bilateral hilar fullness. Contrast-enhanced CT of the chest is recommended. Hilar adenopathy cannot be ruled out. MICROBIOLOGY: Please see below. ASSESSMENT: 45-year-old female with a past medical history of asthma, presented with acute asthma exacerbation as well as hyperkalemia secondary to albuterol use. Patient be admitted to hospital service for treatment of acute exacerbation. Patient is currently saturating well on room air and upon exertion. PLAN: 1. Acute asthma exacerbation:2/2 RSV infection. Normal CTA PE study. Saturating well. -Scheduled duonebs q6h -PRN albuterol nebs q4hp for SOB and wheezing -pred 40 PO BID -mucinex -tessalon perles -toradol 10Q6HP for severe pain, tylenol PRN for mild pain 2. Hx of Hepatic hemangioma-outpatient followed 3. GERD: pantoprazole 4. Hypokalemia: -daily BMP DVT prophylaxis SCDs and teds Dispo: obs, medsurg VS,Fishbone, I+O VS, Carlosbone, I+O Laboratory Tests 02/08/21 16:51 02/09/21 07:29 Vital Signs Date Time Temp Pulse Resp B/P (MAP) Pulse Ox O2 Delivery O2 Flow Rate FiO2 02/09/21 06:03 98.8 76 18 142/83 (102) 94 Room Air I&O- Last 24 Hours up to 6 AM 02/09/21 05:59 Intake Total 1820 ml Balance 1820 ml JORDON ENRIQUE MD Feb 09, 2021 14:01
[2021-02-09 20:47] VITALS: BP 131/82
[2021-02-10] MEDS: IPRATROPIUM 0.5MG/ALBUTEROL 2.5MG INH SOL UD 3ML (DUONEB) NEB SCH ×3 (02:26→13:22)
[2021-02-10 06:26] VITALS: BP 129/82
[2021-02-10 08:30] LABS: HEMATOCRIT 40.2 % (36.0-47.0); HEMOGLOBIN 13.5 g/dl (12.0-15.5); MEAN CORPUSCULAR HEMOGLOBIN 32.6 pg (27.0-33.0); MEAN CORPUSCULAR HGB CONC 33.6 g/dl (32.0-36.5); MEAN CORPUSCULAR VOLUME 97.1 fl (80.0-96.0); PLATELET COUNT, AUTOMATED 269 10^3/uL (150-450); RED BLOOD COUNT 4.14 10^6/uL (4.00-5.40); WHITE BLOOD COUNT 8.7 10^3/uL (4.0-10.0)
[2021-02-10 08:52] LABS: BLOOD UREA NITROGEN 15 MG/DL (7-18); CALCIUM LEVEL 9.6 MG/DL (8.5-10.1); CARBON DIOXIDE LEVEL 24 MEQ/L (21-32); CHLORIDE LEVEL 109 MEQ/L (98-107); CREATININE FOR GFR 0.67 MG/DL (0.55-1.30); GLOMERULAR FILTRATION RATE > 60.0 (>58); GLUCOSE, FASTING 105 MG/DL (70-100); POTASSIUM SERUM 4.4 MEQ/L (3.5-5.1); SODIUM LEVEL 141 MEQ/L (136-145)
[2021-02-10] MEDS: CETIRIZINE (ZyrTEC) 10 MG TAB PO SCH (09:09)
[2021-02-10] MEDS: VENLAFAXINE **XR** 37.5 MG CAPSULE PO SCH (09:09)
[2021-02-10] MEDS: PANTOPRAZOLE 40MG TAB (PROTONIX) PO SCH (09:09)
[2021-02-10] MEDS: predniSONE 20 MG TAB PO SCH (09:09)
[2021-02-10] MEDS: BENZONATATE 100MG CAPSULE PO SCH (09:10)
[2021-02-10] MEDS: guaiFENesin ER 600 MG TAB PO SCH (09:10)
[2021-02-10] MEDS ORDERED: KETO10TAB PO (10:10)
[2021-02-10] MEDS ORDERED: PANT40TA29 PO (10:10)
--- NOTE | 2021-02-10 10:12 | DS.PDOC ---
Discharge Summary General Date of Admission Feb 07, 2021 at 22:53 Date of Discharge 02/10/2021 Attending Physician: JORDON ENRIQUE MD Discharge Summary PROCEDURES PERFORMED DURING STAY: None ADMITTING DIAGNOSES: Asthma exacerbation i/s/o RSV URI DISCHARGE DIAGNOSES: Asthma exacerbation i/s/o RSV URI with bronchitis Hypokalemia COMPLICATIONS/CHIEF COMPLAINT: Asthma Exacerbation; Rsv Bronchitis. HISTORY OF PRESENT ILLNESS: 45-year-old W with a past medical history of asthma who presented to the ED with a 4-day history of shortness of breath and wheezing. She developed symptoms 4d prior to presentation, and began taking her prednisone that she had from her prior exacerbation. She has been taking 40 mg of prednisone daily. She was also using her albuterol inhaler 2 puffs every 4 hours. She was seen in urgent care, and was diagnosed with RSV and was advised to proceed to the hospital. HOSPITAL COURSE: Upon presentation to ER she was given 125 mg of IV Solu-Medrol as well as magnesium. She was given numerous albuterol treatments. She was found to have hypokalemia likely secondary to albuterol use. She was otherwise saturating well on exertion and room air at above 95%. However she continued to have profound wheezing as well as acute shortness of breath. She was therefore admitted to hospitalist service for the treatment of an acute asthma e xacerbation. While on inpatient medicine she was continued on IV solumedrol, scheduled duonebs and PRN albuterol and her wheezing eventually improved. She was transitioned back to PO prednisone 40mg and will also be placed on advair for the next month in addition to her rescue inhaler and will be discharged with mucinex and tessalon perles for the incessant cough. DISCHARGE MEDICATIONS: Please see below. ALLERGIES: Please see below. PHYSICAL EXAMINATION ON DISCHARGE: VITAL SIGNS: please see below General: NAD, comfortable HEENT: PERRLA, EOMI, sclerae clear Neck: supple, normal ROM, no JVD Respiratory: Good inspiratory effort, clear to auscultation, no wheezing this morning, no crackles or rhonchi CVS: RRR, normal S1, S2, no murmurs Abdo: soft, no masses, no hepatosplenomegaly, BS+, no rebound tenderness Extremities: no edema, pulses 2+ MSK: no joint deformities, normal ROM Neuro: no focal neuro deficits, moving all 4 extremities, CN2-12 intact. Strength 5/5 in all 4 extremities. No nystagmus. Psych: calm, cooperative, AAO x 3 LABORATORY DATA: Please see below. IMAGING: CTA PE protocol (02/07/21): 1. There is no aortic dissection or aneurysm. 2. There are no pulmonary emboli. 3. No acute pulmonary parenchymal abnormalities. CXR (02/07/21): Bilateral hilar fullness. Contrast-enhanced CT of the chest is recommended. Hilar adenopathy cannot be ruled out. PROGNOSIS: Good ACTIVITY: As tolerated DIET: regular DISCHARGE PLAN: Home with PO prednisone 40mg for 5d, and will also be placed on advair for the next month in addition to her rescue inhaler and will be d ischarged with mucinex and tessalon perles for the cough. DISPOSITION: Home DISCHARGE INSTRUCTIONS: Home with PO prednisone 40mg for 7d, and will also be placed on advair for the next month in addition to her rescue inhaler and will be discharged with mucinex and tessalon perles for the cough. ITEMS TO FOLLOWUP ON ON OUTPATIENT: Asthma exacerbation RSV bronchitis DISCHARGE CONDITION: Stable. TIME SPENT ON DISCHARGE: 40 minutes. Vital Signs/I&Os Vital Signs Date Time Temp Pulse Resp B/P (MAP) Pulse Ox O2 Delivery O2 Flow Rate FiO2 02/09/21 06:03 98.8 76 18 142/83 (102) 94 Room Air I&O- Last 24 Hours up to 6 AM 02/09/21 06:00 Intake Total 1820 ml Balance 1820 ml Laboratory Data Labs 24H Laboratory Tests 2 02/08/21 16:51: Nucleated Red Blood Cells % (auto) 0.0, Anion Gap 8, Glomerular Filtration Rate > 60.0, Calcium Level 9.9 CBC/BMP Laboratory Tests 02/08/21 16:51 Discharge Medications Scheduled Benzonatate (Benzonatate) 100 Mg Capsule, 100 MG PO TID Cetirizine HCl (24Hour Allergy) 10 Mg Tablet, 10 MG PO DAILY, (Reported) Fluticasone Propion/Salmeterol (Advair Hfa 115-21 Mcg Inhaler) 12 Gm Hfa.aer.ad, 2 PUFF INH BID Guaifenesin (Mucinex) 600 Mg Tab.er.12h, 600 MG PO BID, (Reported) Pantoprazole Sodium (Pantoprazole Sodium) 40 Mg Tablet.dr, 40 MG PO BID Prednisone (Prednisone) 20 Mg Tablet, 40 MG PO DAILY Venlafaxine HCl (Venlafaxine HCl ER) 37.5 Mg Cap.er.24h, 37.5 MG PO DAILY, (Reported) Scheduled PRN Albuterol Sulf (Albuterol Sulfate) 2.5 Mg/3 Ml Nebu, 2.5 MG INH QID PRN for SOB/WHEEZING, (Reported) Albuterol Sulfate (Ventolin Hfa) 108 Mcg/Act Aer, 108 MCG INH DAILY PRN for SOB/WHEEZING, (Reported) Ketorolac Tromethamine (Ketorolac Tromethamine) 10 Mg Tablet, 10 MG PO Q6HP PRN for severe pain Allergies Coded Allergies: Penicillins (Verified Allergy, Severe, THROAT CLOSES/HIVES, 01/03/20) ciprofloxacin (Verified Allergy, Unknown, 01/03/20) JORDON ENRIQUE MD Feb 09, 2021 07:36
== END 2021-02-10 14:45 | disposition home or self-care (01) | DRG 138 ==
LOC: M ED 11:44 → M ED INP 22:53 → ENRESERV 02-08 00:11 → M MS5PR 02-08 03:26 → OBSVTOIN 02-09 13:54
PROVIDERS: ADMIT Family Medicine; ATTEND Family Medicine
DX: J21.0 Acute bronchiolitis due to respiratory syncytial virus (principal); J45.901 Unspecified asthma with (acute) exacerbation; J06.9 Acute upper respiratory infection, unspecified; E87.6 Hypokalemia; K21.9 Gastro-esophageal reflux disease without esophagitis; Z20.822 Contact with and (suspected) exposure to COVID-19; Z79.899 Other long term (current) drug therapy; Z88.0 Allergy status to penicillin; Z88.1 Allergy status to other antibiotic agents; J30.2 Other seasonal allergic rhinitis; D18.00 Hemangioma unspecified site

== ENCOUNTER → 2021-02-13 | Outpatient (REF) | payer OTHER ==
[~2021-02-13] MED LIST changes: +ADVA115A INH; +ALLE10TA62 PO; +BENZ-18 PO; +MUCI600T31 PO
== END ==
LOC: M LAB REF 16:25
PROVIDERS: ATTEND Physician Assistant Medical
DX: R50.9 Fever, unspecified (principal); R05.9 Cough, unspecified

== ENCOUNTER → 2021-08-08 | Outpatient (REF) | payer OTHER, MEDICAID | LOC: M LAB REF 21:32 | PROVIDERS: ATTEND Physician Assistant | DX: R50.9 Fever, unspecified (principal) ==

== ENCOUNTER → 2021-08-15 | Outpatient (REF) | payer OTHER ==
[2021-08-15 13:50] LABS: APPEARANCE, URINE CLEAR (CLEAR); BACTERIA, URINE AUTO NEGATIVE (NEGATIVE); BILIRUBIN, URINE AUTO NEGATIVE (NEGATIVE); BLOOD, URINE BLOOD NEGATIVE (NEGATIVE); COLOR, URINE YELLOW (YELLOW); GLUCOSE, URINE (UA) AUTO NEGATIVE (NEGATIVE); KETONE, URINE AUTO NEGATIVE (NEGATIVE); LEUKOCYTE ESTERASE, URINE AUTO NEGATIVE (NEGATIVE); MUCUS, URINE SMALL (NEGATIVE); NITRITE, URINE AUTO NEGATIVE (NEGATIVE); PROTEIN, URINE AUTO NEGATIVE (NEGATIVE); RBC, URINE AUTO 1 /HPF (0-3); SPECIFIC GRAVITY URINE AUTO 1.023 (1.002-1.035); SQUAMOUS EPITHELIAL CELL UR AU 1 /HPF (0-6); UROBILINOGEN, URINE AUTO 0.2 mg/dL (0.0-2.0); WBC, URINE AUTO 1 /HPF (0-3)
== END ==
LOC: M LAB REF 12:37
PROVIDERS: ATTEND Physician Assistant
DX: R30.0 Dysuria (principal)

== ENCOUNTER → 2021-08-17 | Outpatient (CLI) | payer OTHER | LOC: M WHC 09:36 | PROVIDERS: ATTEND Physician Assistant | DX: N93.9 Abnormal uterine and vaginal bleeding, unspecified (principal); Z97.5 Presence of (intrauterine) contraceptive device ==

== ENCOUNTER 2021-11-14 18:48 | Emergency (ER) | payer OTHER, MEDICAID ==
[~2021-11-14] VITALS: Ht 167.6 cm; Wt 99.2 kg
[~2021-11-14 18:48] MED LIST changes: +ALBU2.5V10 INH; -ALBU83IN INH
[2021-11-14 18:51] VITALS: BP 126/72
== END 2021-11-14 23:38 | disposition left against medical advice (07) ==
LOC: M ED 18:48
DX: Z53.29 Procedure and treatment not carried out because of patient's decision for other reasons (principal)

== ENCOUNTER → 2022-01-21 | Outpatient (REF) | payer OTHER, MEDICAID ==
[2022-01-21 22:01] LABS: APPEARANCE, URINE MANUAL CLEAR (CLEAR); COLOR, URINE MANUAL LT YELLOW (YELLOW); PH,URINE MAN 5.5 UNITS (5.0 - 7.0)
[2022-01-21 22:02] LABS: BILIRUBIN, URINE MANUAL NEGATIVE (NEGATIVE); BLOOD URINE MANUAL NEGATIVE (NEGATIVE); GLUCOSE, URINE (UA) MANUAL NEGATIVE (NEGATIVE); KETONE, URINE MANUAL NEGATIVE (NEGATIVE); LEUKOCYTE ESTERASE, URINE MAN NEGATIVE (NEGATIVE); NITRITE, URINE MANUAL NEGATIVE (NEGATIVE); PROTEIN, URINE MANUAL NEGATIVE (NEGATIVE); UROBILINOGEN, URINE MANUAL NORMAL (NORMAL)
== END ==
LOC: M LAB REF 21:44
PROVIDERS: ATTEND Physician Assistant Medical
DX: N39.0 Urinary tract infection, site not specified (principal); R30.0 Dysuria

== ENCOUNTER → 2022-01-30 | Outpatient (CLI) | payer OTHER | LOC: M WHC 10:05 | PROVIDERS: ATTEND Physician Assistant | DX: Z12.31 Encounter for screening mammogram for malignant neoplasm of breast (principal); N64.4 Mastodynia ==

== ENCOUNTER → 2022-05-07 | Outpatient (REF) | payer MEDICAID, OTHER | LOC: M SFHCWAGY 17:08 | PROVIDERS: ATTEND Nurse Practitioner Family | DX: Z12.4 Encounter for screening for malignant neoplasm of cervix (principal); R87.610 Atypical squamous cells of undetermined significance on cytologic smear of cervix (ASC-US); R87.810 Cervical high risk human papillomavirus (HPV) DNA test positive ==

== ENCOUNTER → 2022-06-12 | Outpatient (CLI) | payer OTHER, MEDICAID ==
[2022-06-12 17:09] LABS: BASO % 0.3 % (0.0-1.0); EOS # 0.1 10^3/uL (0.0-0.5); EOS % 1.1 % (0.0-3.0); HEMATOCRIT 41.3 % (36.0-47.0); HEMOGLOBIN 13.9 g/dl (12.0-15.5); LYMPH # 1.7 10^3/uL (1.5-5.0); LYMPH % 23.6 % (24.0-44.0); MEAN CORPUSCULAR HEMOGLOBIN 32.6 pg (27.0-33.0); MEAN CORPUSCULAR HGB CONC 33.7 g/dl (32.0-36.5); MEAN CORPUSCULAR VOLUME 96.7 fl (80.0-96.0); MONO # 0.6 10^3/uL (0.0-0.8); MONO % 8.6 % (2.0-8.0); NEUTROPHILS # 4.7 10^3/uL (1.5-8.5); PLATELET COUNT, AUTOMATED 236 10^3/uL (150-450); RED BLOOD COUNT 4.27 10^6/uL (4.00-5.40); WHITE BLOOD COUNT 7.1 10^3/uL (4.0-10.0)
[2022-06-12 17:45] LABS: ALBUMIN 3.8 G/DL (3.2-5.2); ALKALINE PHOSPHATASE 39 U/L (46-116); ALT/SGPT 21 U/L (7.0-40); AST/SGOT 16 U/L (<34); BILIRUBIN,TOTAL 0.6 MG/DL (0.3-1.2); BLOOD UREA NITROGEN 14 MG/DL (9-23); CALCIUM LEVEL 9.3 MG/DL (8.5-10.1); CARBON DIOXIDE LEVEL 28 MMOL/L (20-31); CHLORIDE LEVEL 104 MMOL/L (98-107); CHOLESTEROL LEVEL 186 MG/DL (<200); CHOLESTEROL RISK RATIO 3.69 (<5); CREATININE FOR GFR 0.79 MG/DL (0.55-1.30); FREE T4 0.79 NG/DL (0.89-1.76); GLOMERULAR FILTRATION RATE > 60.0 (>58); GLUCOSE, FASTING 100 MG/DL (60-100); HDL CHOLESTEROL 50.3 MG/DL (>40); LDL CHOLESTEROL 109.1 MG/DL (<100); NON-HDL-C 135.7 MG/DL; POTASSIUM SERUM 3.7 MMOL/L (3.5-5.1); SODIUM LEVEL 138 MMOL/L (136-145); THYROID STIMULATING HORMONE 3.297 uIU/ML (0.55-4.78); TOTAL 25(OH) VITAMIN D 20.3 NG/ML (20.0-100.0); TOTAL PROTEIN 6.9 G/DL (5.7-8.2); TRIGLYCERIDES LEVEL 133 MG/DL (<150)
[2022-06-12 18:02] LABS: HEMOGLOBIN A1c 5.5 % (4.0-6.0)
== END ==
LOC: M PLALAB 15:39
PROVIDERS: ATTEND Physician Assistant
DX: E66.9 Obesity, unspecified (principal)

== ENCOUNTER → 2022-07-10 | Outpatient (REF) | payer OTHER, MEDICAID | LOC: M SFHCWAGY 17:52 | PROVIDERS: ATTEND Obstetrics & Gynecology | DX: R87.610 Atypical squamous cells of undetermined significance on cytologic smear of cervix (ASC-US) (principal); R87.612 Low grade squamous intraepithelial lesion on cytologic smear of cervix (LGSIL) ==

== ENCOUNTER → 2022-07-19 | Outpatient (CLI) | payer OTHER | LOC: M RAD 14:15 | PROVIDERS: ATTEND Internal Medicine Pulmonary Disease | DX: J45.40 Moderate persistent asthma, uncomplicated (principal) ==

== ENCOUNTER 2022-07-23 07:45 | Outpatient (RCR) | payer OTHER | END 2022-07-28 | LOC: M PT 07:45 | PROVIDERS: ATTEND Physician Assistant | DX: M26.609 Unspecified temporomandibular joint disorder, unspecified side (principal) ==

== ENCOUNTER → 2022-08-12 | Outpatient (CLI) | payer OTHER, MEDICAID | LOC: M SOG 11:59 | PROVIDERS: ATTEND Physician Assistant | DX: M25.531 Pain in right wrist (principal) ==

== ENCOUNTER 2022-08-21 07:45 | Outpatient (RCR) | payer OTHER | END 2022-08-28 | LOC: M PT 07:45 | PROVIDERS: ATTEND Physician Assistant | DX: M26.609 Unspecified temporomandibular joint disorder, unspecified side (principal) ==

== ENCOUNTER → 2022-09-02 | Outpatient (CLI) | payer OTHER, MEDICAID ==
[~2022-09-02] MED LIST changes: +ISOVUE-370 76% 100ML VIAL As Ordered ONE
== END ==
LOC: M RAD 13:31
PROVIDERS: ATTEND Ophthalmology
DX: H05.812 Cyst of left orbit (principal)
CPT/HCPCS: 70481; Q9967

== ENCOUNTER → 2022-12-10 | Outpatient (CLI) | payer OTHER ==
[~2022-12-10] MED LIST changes: -ISOVUE-370 76% 100ML VIAL As Ordered ONE
== END ==
LOC: M PLAIMG 16:08
PROVIDERS: ATTEND Physician Assistant
DX: J40 Bronchitis, not specified as acute or chronic (principal); R91.8 Other nonspecific abnormal finding of lung field; I51.7 Cardiomegaly

== ENCOUNTER → 2022-12-19 | Outpatient (REF) | payer OTHER | LOC: M SFHCWAGY 17:03 | PROVIDERS: ATTEND Nurse Practitioner Family | DX: R30.0 Dysuria (principal); N76.0 Acute vaginitis ==

== ENCOUNTER → 2023-01-24 | Outpatient (CLI) | payer OTHER | LOC: M CARPUL 10:02 | PROVIDERS: ATTEND Physician Assistant | DX: I51.7 Cardiomegaly (principal) ==

== ENCOUNTER → 2023-03-12 | Outpatient (CLI) | payer OTHER | LOC: M PLAIMG 13:09 | PROVIDERS: ATTEND Physician Assistant | DX: J18.9 Pneumonia, unspecified organism (principal) ==

== ENCOUNTER → 2023-05-27 | Outpatient (REF) | payer OTHER | LOC: M SFHCPLAZ 10:53 | PROVIDERS: ATTEND Family Medicine | DX: J02.0 Streptococcal pharyngitis (principal); Z53.9 Procedure and treatment not carried out, unspecified reason ==

== ENCOUNTER → 2023-06-19 | Outpatient (CLI) | payer OTHER ==
[2023-06-19 17:34] LABS: BASO % 0.4 % (0.0-1.0); EOS # 0.1 10^3/uL (0.0-0.5); EOS % 1.3 % (0.0-3.0); HEMATOCRIT 42.3 % (36.0-47.0); LYMPH # 1.7 10^3/uL (1.5-5.0); LYMPH % 22.1 % (24.0-44.0); MEAN CORPUSCULAR HEMOGLOBIN 31.7 pg (27.0-33.0); MEAN CORPUSCULAR HGB CONC 33.1 g/dl (32.0-36.5); MEAN CORPUSCULAR VOLUME 95.9 fl (80.0-96.0); MONO # 0.9 10^3/uL (0.0-0.8); MONO % 11.7 % (2.0-8.0); NEUTROPHILS # 4.9 10^3/uL (1.5-8.5); NEUTROPHILS % 64.2 % (36.0-66.0); PLATELET COUNT, AUTOMATED 228 10^3/uL (150-450); RED BLOOD COUNT 4.41 10^6/uL (4.00-5.40); WHITE BLOOD COUNT 7.6 10^3/uL (4.0-10.0)
[2023-06-21 17:11] LABS: EBV AB TO NUCLEAR ANTIGEN >600.0 U/mL (0.0-17.9); EBV VIRAL CAPSID AG IgG >600.0 U/mL (0.0-17.9); EBV VIRAL CAPSID AG IgM <36.0 U/mL (0.0-35.9)
== END ==
LOC: M PLALAB 15:45
PROVIDERS: ATTEND Student in an Organized Health Care Education/Training Program
DX: R07.0 Pain in throat (principal)

== ENCOUNTER 2023-07-11 15:21 | Emergency (ER) | payer BC ==
[~2023-07-11] VITALS: Ht 167.6 cm; Wt 107.9 kg
[2023-07-11] MEDS ORDERED: SERT50TA29 PO (15:37)
[2023-07-11 16:07] LABS: BASO % 0.1 % (0.0-1.0); EOS % 0.1 % (0.0-3.0); HEMATOCRIT 41.8 % (36.0-47.0); HEMOGLOBIN 14.3 g/dl (12.0-15.5); LYMPH # 0.9 10^3/uL (1.5-5.0); MEAN CORPUSCULAR HGB CONC 34.2 g/dl (32.0-36.5); MEAN CORPUSCULAR VOLUME 93.5 fl (80.0-96.0); MONO # 0.4 10^3/uL (0.0-0.8); MONO % 4.8 % (2.0-8.0); NEUTROPHILS # 6.6 10^3/uL (1.5-8.5); NEUTROPHILS % 83.7 % (36.0-66.0); PLATELET COUNT, AUTOMATED 230 10^3/uL (150-450); RED BLOOD COUNT 4.47 10^6/uL (4.00-5.40); WHITE BLOOD COUNT 7.9 10^3/uL (4.0-10.0)
[2023-07-11 16:33] LABS: ALBUMIN 3.7 G/DL (3.2-5.2); ALKALINE PHOSPHATASE 48 U/L (46-116); ALT/SGPT 20 U/L (7.0-40); AST/SGOT 9 U/L (<34); BILIRUBIN,DIRECT 0.1 MG/DL (<0.4); BILIRUBIN,TOTAL 0.4 MG/DL (0.3-1.2); BLOOD UREA NITROGEN 14 MG/DL (9-23); CALCIUM LEVEL 9.6 MG/DL (8.5-10.1); CARBON DIOXIDE LEVEL 26 MMOL/L (20-31); CHLORIDE LEVEL 104 MMOL/L (98-107); CK-MB VALUE MASS < 1.0 NG/ML (<3.6); CREATININE FOR GFR 0.71 MG/DL (0.55-1.30); GLOMERULAR FILTRATION RATE > 60.0 (>58); GLUCOSE, FASTING 127 MG/DL (60-100); POTASSIUM SERUM 3.3 MMOL/L (3.5-5.1); SODIUM LEVEL 139 MMOL/L (136-145)
[2023-07-11 16:34] LABS: CPK CREATINE PHOSPHOKINASE < 15 U/L (34-145)
[2023-07-11] MEDS: methylPREDNISolone 125MG 2ML VIAL IM ONE (19:46)
[2023-07-11] MEDS: IPRATROPIUM 0.5MG/ALBUTEROL 2.5MG INH SOL UD 3ML (DUONEB) NEB ONE ×2 (19:48→20:30)
[2023-07-11] MEDS: BENZONATATE 100MG CAPSULE PO ONE (20:30)
[2023-07-11] MEDS ORDERED: BENZ200C70 PO (20:50)
[2023-07-11] MEDS ORDERED: PRED20TA PO (20:50)
[2023-07-11 21:05] VITALS: BP 115/76; TEMP 97.8; O2SAT 99
== END 2023-07-11 21:07 | disposition home or self-care (01) ==
LOC: M ED 15:21
DX: J11.1 Influenza due to unidentified influenza virus with other respiratory manifestations (principal); B34.8 Other viral infections of unspecified site; J45.909 Unspecified asthma, uncomplicated; K21.9 Gastro-esophageal reflux disease without esophagitis; Z87.01 Personal history of pneumonia (recurrent); Z87.09 Personal history of other diseases of the respiratory system; Z87.891 Personal history of nicotine dependence; Z79.899 Other long term (current) drug therapy; Z88.0 Allergy status to penicillin; Z88.1 Allergy status to other antibiotic agents
CPT/HCPCS: 71046; 80048; 80076; 82550; 82553; 85025; 87486; 87581; 87633; 87798; 93005; 94640; 96372; 99284; J2919

== ENCOUNTER 2023-07-25 10:58 | Day surgery (SDC) | payer BC, OTHER ==
[~2023-07-25] VITALS: Ht 167.6 cm; Wt 105.7 kg
[~2023-07-25 10:58] MED LIST changes: +BENZ200C70 PO; +SERT50TA29 PO
[2023-07-25] MEDS ORDERED: propofoL 200 MG/20 ML VIAL As Ordered ONE (11:07)
[2023-07-25] MEDS ORDERED: MIDAZOLAM INJ 2MG/2ML VIAL As Ordered ONE (11:07)
[2023-07-25] MEDS ORDERED: fentaNYL 100 MCG/2 ML INJECTION As Ordered ONE (11:07)
[2023-07-25] MEDS ORDERED: ACETAMINOPHEN 1000MG 100ML IV BAG As Ordered ONE (11:07)
[2023-07-25] MEDS: LR 1,000 ML IV SCH ×2 (11:48→14:09)
[2023-07-25] MEDS: ceFAZolin 2 GM/D5W 50 ML IV BAG As Ordered ONE (12:53)
[2023-07-25] MEDS ORDERED: KETOROLAC 60MG 2ML VIAL As Ordered ONE (13:00)
[2023-07-25] MEDS: BACITRACIN OINTMENT 30GM TUBE As Ordered ONE (13:03)
[2023-07-25] MEDS ORDERED: PERC5TAB12 PO (13:29)
[2023-07-25] MEDS: PERCOCET 5MG/325MG TAB PO STA (13:30)
[2023-07-25] MEDS ORDERED: fentaNYL 100 MCG/2 ML INJECTION IV PRN (13:50)
[2023-07-25] MEDS ORDERED: HYDROMORPHONE HCL 0.5 MG/ 0.5 ML SYRINGE IV PRN (13:50)
[2023-07-25] MEDS ORDERED: oxyCODONE 5MG TAB PO PRN (13:50)
[2023-07-25] MEDS: MORPHINE 2 MG/ML 1ML VIAL IV PRN (14:01)
[2023-07-25] MEDS: ONDANSETRON 4MG 2ML VIAL IV PRN (14:06)
[2023-07-25 14:40] VITALS: TEMP 98
[2023-07-25 14:43] VITALS: BP 140/83; O2SAT 100
== END 2023-07-25 14:46 | disposition home or self-care (01) ==
LOC: M SDC 10:58
PROVIDERS: ATTEND Orthopaedic Surgery Hand Surgery
DX: B07.8 Other viral warts (principal); K21.9 Gastro-esophageal reflux disease without esophagitis; J45.909 Unspecified asthma, uncomplicated; Z87.891 Personal history of nicotine dependence; Z88.1 Allergy status to other antibiotic agents; Z88.0 Allergy status to penicillin; Z79.899 Other long term (current) drug therapy; Z79.51 Long term (current) use of inhaled steroids
CPT/HCPCS: 11755; 81025; 88305; J0131; J0665; J0690; J1885; J2250; J2405; J3010

== ENCOUNTER → 2023-09-15 | Outpatient (CLI) | payer BC | LOC: M PLALAB 12:34 | PROVIDERS: ATTEND Physician Assistant Medical | DX: R21 Rash and other nonspecific skin eruption (principal) ==

== ENCOUNTER → 2023-10-06 | Outpatient (REF) | payer BC ==
[2023-10-06 21:17] LABS: BILIRUBIN, URINE MANUAL NEGATIVE (NEGATIVE); BLOOD URINE MANUAL TRACE (NEGATIVE); GLUCOSE, URINE (UA) MANUAL NEGATIVE (NEGATIVE); KETONE, URINE MANUAL NEGATIVE (NEGATIVE); LEUKOCYTE ESTERASE, URINE MAN NEGATIVE (NEGATIVE); NITRITE, URINE MANUAL NEGATIVE (NEGATIVE); PH,URINE MAN 5.5 UNITS (5.0 - 7.0); PROTEIN, URINE MANUAL NEGATIVE (NEGATIVE); UROBILINOGEN, URINE MANUAL NORMAL (NORMAL)
[2023-10-06 21:18] LABS: APPEARANCE, URINE MANUAL CLEAR (CLEAR); COLOR, URINE MANUAL LT YELLOW (YELLOW)
[2023-10-06 21:20] LABS: RBC, URINE QNS /hpf (0-3); SQUAMOUS EPITHELIAL CELL URINE QNS /hpf (SMALL AMT); WBC, URINE QNS /hpf (0-3)
[2023-10-06 21:21] LABS: BACTERIA, URINE QNS; HYALINE CAST, URINE QNS /lpf (0-1)
== END ==
LOC: M LAB REF 20:45
PROVIDERS: ATTEND Physician Assistant
DX: N39.0 Urinary tract infection, site not specified (principal)

== ENCOUNTER → 2023-10-07 | Outpatient (CLI) | payer BC ==
[2023-10-07 15:29] LABS: HEMATOCRIT 43.5 % (36.0-47.0); HEMOGLOBIN 14.4 g/dl (12.0-15.5); MEAN CORPUSCULAR HEMOGLOBIN 31.9 pg (27.0-33.0); MEAN CORPUSCULAR HGB CONC 33.1 g/dl (32.0-36.5); MEAN CORPUSCULAR VOLUME 96.2 fl (80.0-96.0); PLATELET COUNT, AUTOMATED 217 10^3/uL (150-450); RED BLOOD COUNT 4.52 10^6/uL (4.00-5.40); WHITE BLOOD COUNT 5.7 10^3/uL (4.0-10.0)
[2023-10-07 15:34] LABS: ERYTHROCYTE SEDIMENTATION RATE 8 mm/hr (0-20)
[2023-10-07 15:51] LABS: C REACTIVE PROTEIN QUANTITATIV < 0.40 MG/DL (<1.0)
[2023-10-07 15:52] LABS: ALBUMIN 3.8 G/DL (3.2-5.2); ALKALINE PHOSPHATASE 46 U/L (46-116); ALT/SGPT 32 U/L (7.0-40); AST/SGOT 20 U/L (<34); BILIRUBIN,TOTAL 0.6 MG/DL (0.3-1.2); BLOOD UREA NITROGEN 17 MG/DL (9-23); CALCIUM LEVEL 9.7 MG/DL (8.5-10.1); CARBON DIOXIDE LEVEL 26 MMOL/L (20-31); CHLORIDE LEVEL 107 MMOL/L (98-107); CREATININE FOR GFR 0.87 MG/DL (0.55-1.30); GLOMERULAR FILTRATION RATE > 60.0 (>58); GLUCOSE, FASTING 87 MG/DL (60-100); POTASSIUM SERUM 4.2 MMOL/L (3.5-5.1); SODIUM LEVEL 140 MMOL/L (136-145); TOTAL PROTEIN 6.8 G/DL (5.7-8.2)
== END ==
LOC: M PLALAB 13:52
PROVIDERS: ATTEND Nurse Practitioner Family
DX: L30.9 Dermatitis, unspecified (principal)

== ENCOUNTER 2023-11-07 09:06 | Emergency (ER) | payer BC ==
[~2023-11-07] VITALS: Ht 167.6 cm; Wt 109.8 kg
[2023-11-07] MEDS ORDERED: PRED20TA PO (11:39)
[2023-11-07] MEDS ORDERED: NIRM1TAB14 PO (11:39)
[2023-11-07] MEDS: predniSONE 20 MG TAB PO ONE (11:50)
[2023-11-07] MEDS: IPRATROPIUM 0.5MG/ALBUTEROL 2.5MG INH SOL UD 3ML (DUONEB) NEB ONE (12:11)
[2023-11-07 12:34] LABS: CK-MB VALUE MASS < 1.0 NG/ML (<3.6)
[2023-11-07 12:35] LABS: CPK CREATINE PHOSPHOKINASE 16 U/L (34-145); MB/CK RELATIVE INDEX 6.25 (< OR =4)
[2023-11-07] MEDS ORDERED: ALBU8.5H INH (14:04)
[2023-11-07] MEDS ORDERED: DELS1LIQ3 PO (14:05)
[2023-11-07 14:16] LABS: CK-MB VALUE MASS < 1.0 NG/ML (<3.6)
[2023-11-07 14:17] LABS: CPK CREATINE PHOSPHOKINASE < 15 U/L (34-145)
[2023-11-07 14:41] VITALS: BP 134/92; TEMP 97.3; O2SAT 95
== END 2023-11-07 14:50 | disposition home or self-care (01) ==
LOC: M ED 09:06
DX: U07.1 COVID-19 (principal); J45.902 Unspecified asthma with status asthmaticus; K21.9 Gastro-esophageal reflux disease without esophagitis; M32.9 Systemic lupus erythematosus, unspecified; F41.9 Anxiety disorder, unspecified; F32.A Depression, unspecified; F10.10 Alcohol abuse, uncomplicated; Z88.0 Allergy status to penicillin; Z88.1 Allergy status to other antibiotic agents; Z79.51 Long term (current) use of inhaled steroids; Z79.52 Long term (current) use of systemic steroids; Z79.899 Other long term (current) drug therapy
CPT/HCPCS: 36415; 71046; 82550; 82553; 84484; 93005; 94640; 99284; J7512

== ENCOUNTER → 2024-02-23 | Outpatient (REF) | payer BC ==
[~2024-02-23] MED LIST changes: +ALBU8.5H INH; +DELS1LIQ3 PO; +NIRM1TAB14 PO
[2024-02-25 15:52] LABS: HPV APTIMA Detected (Not Detected)
== END ==
LOC: M SFHCWAGY 12:35
PROVIDERS: ATTEND Obstetrics & Gynecology
DX: Z87.410 Personal history of cervical dysplasia (principal); R87.611 Atypical squamous cells cannot exclude high grade squamous intraepithelial lesion on cytologic smear of cervix (ASC-H)

== ENCOUNTER → 2024-03-03 | Outpatient (CLI) | payer BC ==
[~2024-03-03] MED LIST changes: -ADV250INH INH; +ADVA1AER9 INH
[2024-03-03 19:18] LABS: THYROID STIMULATING HORMONE 3.446 uIU/ML (0.55-4.78)
[2024-03-03 19:19] LABS: ALBUMIN 3.8 G/DL (3.2-5.2); ALKALINE PHOSPHATASE 48 U/L (35-104); ALT/SGPT 43 U/L (7.0-40); AST/SGOT 19 U/L (<34); BILIRUBIN,TOTAL 0.4 MG/DL (0.3-1.2); BLOOD UREA NITROGEN 12 MG/DL (9-23); CALCIUM LEVEL 9.9 MG/DL (8.5-10.1); CARBON DIOXIDE LEVEL 25 MMOL/L (20-31); CHLORIDE LEVEL 106 MMOL/L (98-107); CREATININE FOR GFR 0.75 MG/DL (0.55-1.30); GLOMERULAR FILTRATION RATE > 60.0 (>58); GLUCOSE, FASTING 89 MG/DL (60-100); POTASSIUM SERUM 4.1 MMOL/L (3.5-5.1); SODIUM LEVEL 139 MMOL/L (136-145); TOTAL PROTEIN 7.1 G/DL (5.7-8.2)
[2024-03-03 19:20] LABS: FERRITIN 41.3 NG/ML (7.3-270.7)
[2024-03-03 19:21] LABS: FREE T4 0.95 NG/DL (0.89-1.76)
[2024-03-03 19:30] LABS: HEMOGLOBIN A1c 5.2 % (4.0-6.0)
[2024-03-06 03:53] LABS: IgG P18 AB NON-REACTIVE; IgG P23 AB NON-REACTIVE; IgG P28 AB NON-REACTIVE; IgG P30 AB NON-REACTIVE; IgG P39 AB NON-REACTIVE; IgG P41 AB REACTIVE; IgG P45 AB NON-REACTIVE; IgG P58 AB NON-REACTIVE; IgG P66 AB NON-REACTIVE; IgG P93 AB NON-REACTIVE; IgM P23 AB NON-REACTIVE; IgM P39 AB NON-REACTIVE; IgM P41 AB NON-REACTIVE; LYME IgG WB INTERPRETATION NEGATIVE (NEGATIVE); LYME IgM WB INTERPRETATION NEGATIVE (NEGATIVE)
== END ==
LOC: M PLALAB 14:17
PROVIDERS: ATTEND Nurse Practitioner Family
DX: R19.7 Diarrhea, unspecified (principal); R53.83 Other fatigue; R63.5 Abnormal weight gain

== ENCOUNTER → 2024-06-29 | Outpatient (REF) | payer BC | LOC: M SFHCPLAZ 09:43 | PROVIDERS: ATTEND Nurse Practitioner Family | DX: R05.9 Cough, unspecified (principal) ==

== ENCOUNTER → 2024-07-21 | Outpatient (CLI) | payer BC | LOC: M RAD 08:45 | PROVIDERS: ATTEND Nurse Practitioner Family | DX: K76.0 Fatty (change of) liver, not elsewhere classified (principal) ==

== ENCOUNTER → 2024-08-04 | Outpatient (REF) | payer BC | LOC: M SFHCWAGY 13:19 | PROVIDERS: ATTEND Obstetrics & Gynecology | DX: R87.610 Atypical squamous cells of undetermined significance on cytologic smear of cervix (ASC-US) (principal) ==

== ENCOUNTER → 2024-10-14 | Outpatient (REF) | payer OTHER ==
[2024-10-14 18:29] LABS: APPEARANCE, URINE MANUAL CLEAR (CLEAR); BILIRUBIN, URINE MANUAL OBSCURED (NEGATIVE); COLOR, URINE MANUAL ORANGE (YELLOW); GLUCOSE, URINE (UA) MANUAL NEGATIVE (NEGATIVE); KETONE, URINE MANUAL NEGATIVE (NEGATIVE); PH,URINE MAN 5.0 UNITS (5.0 - 7.0); PROTEIN, URINE MANUAL NEGATIVE (NEGATIVE); SPECIFIC GRAVITY,URINE MANUAL 1.025 (1.002-1.035); UROBILINOGEN, URINE MANUAL OBSCURED mg/dl (NORMAL)
[2024-10-14 18:30] LABS: BLOOD URINE MANUAL NEGATIVE (NEGATIVE); LEUKOCYTE ESTERASE, URINE MAN OBSCURED (NEGATIVE); NITRITE, URINE MANUAL OBSCURED (NEGATIVE)
[2024-10-14 18:45] LABS: BACTERIA, URINE MOD AMOUNT; SQUAMOUS EPITHELIAL CELL URINE LARGE AMOUNT /hpf (SMALL AMT)
[2024-10-14 18:46] LABS: HYALINE CAST, URINE NONE SEEN /lpf (0-1); MUCUS, URINE MOD AMOUNT (NEGATIVE)
== END ==
LOC: M LAB REF 17:24
PROVIDERS: ATTEND Physician Assistant
DX: N39.0 Urinary tract infection, site not specified (principal)

== ENCOUNTER → 2024-12-01 | Outpatient (CLI) | payer OTHER ==
[~2024-12-01] MED LIST changes: -NIRM1TAB14 PO; +NIRM1TAB16 PO
== END ==
LOC: M EKG 16:51
PROVIDERS: ATTEND Nurse Practitioner Family
DX: R07.89 Other chest pain (principal)

== ENCOUNTER → 2025-02-02 | Outpatient (CLI) | payer OTHER | LOC: M PLAIMG 07:38 | PROVIDERS: ATTEND Nurse Practitioner Family | DX: R07.89 Other chest pain (principal); R19.7 Diarrhea, unspecified; I34.0 Nonrheumatic mitral (valve) insufficiency; I37.1 Nonrheumatic pulmonary valve insufficiency; I77.810 Thoracic aortic ectasia ==

== ENCOUNTER 2025-03-04 08:23 | Day surgery (SDC) | payer OTHER ==
[~2025-03-04] VITALS: Ht 12.7 cm; Wt 2.7 kg
[~2025-03-04 08:23] MED LIST changes: +SPIR-10 PO; +ZOLO100T PO
[2025-03-04] MEDS ORDERED: LIDOCAINE 2% 100 MG/5 ML SDV (FOR ANES.) As Ordered ONE (10:03)
[2025-03-04] MEDS ORDERED: GLYCOPYRROLATE INJ 0.2 MG/ML 2 ML VIAL As Ordered ONE (10:03)
[2025-03-04 10:07] VITALS: TEMP 97.3
[2025-03-04 10:31] VITALS: BP 134/84; O2SAT 99
== END 2025-03-04 10:36 | disposition home or self-care (01) ==
LOC: M OPP 08:23
PROVIDERS: ATTEND Internal Medicine Gastroenterology
DX: Z12.11 Encounter for screening for malignant neoplasm of colon (principal); K21.9 Gastro-esophageal reflux disease without esophagitis; J45.909 Unspecified asthma, uncomplicated; Z83.718 Family history of other colon polyps; Z88.0 Allergy status to penicillin; Z88.1 Allergy status to other antibiotic agents; Z79.899 Other long term (current) drug therapy; Z80.0 Family history of malignant neoplasm of digestive organs; Z82.49 Family history of ischemic heart disease and other diseases of the circulatory system; Z83.6 Family history of other diseases of the respiratory system
CPT/HCPCS: 45378; J1596